=== PATIENT | male | born 1955 | race Caucasian/White ===

== ENCOUNTER 2021-01-31 08:50 | Inpatient (IN) | payer MEDICARE, OTHER ==
[2021-01-31] MEDS ORDERED: MORPHINE SULFATE 4 MG/ML SYRINGE IVP STA ×2 (10:16→13:17)
[2021-01-31] MEDS ORDERED: MAGNESIUM HYDROXIDE 2,400 MG/10 ML CUP PO PRN (10:17)
[2021-01-31] MEDS ORDERED: NALOXONE 0.4 MG/ML 1 ML VIAL IV PRN (10:21)
[2021-01-31] MEDS ORDERED: ACETAMINOPHEN TAB 325 MG TAB PO PRN (10:21)
--- NOTE | 2021-01-31 10:21 | ED ---
Abdominal Pain HPI - General Chief Complaint: Abdominal Pain Stated Complaint: Kidney stones Source: patient Mode of arrival: EMS - History of Present Illness Initial Comments: Patient is a 65-year-old male with past nuchal history of COPD, diabetes, heart failure who presents to the emergency department with reported right-sided abdominal pain. Patient is transferred from [facility]. He states that he took an ambulance into the emergency department for some right-sided abdominal pain. States he has not had a bowel movement in 4 days and normally goes daily. He also reports to burning with urination, frequent urination. Laboratory studies were performed at the outside hospital which were all within normal admits. Covid was negative. Patient did have a urinary tract infection with ni trite-positive urine and 3+ bacteria. He was given a dose of meropenem and blood cultures were obtained. CT was performed patient's abdomen and pelvis which demonstrated a 13 mm and 1 mm renal stone on the left. This is opposite the side of the patient's pain. The patient was given Tylenol and Toradol for pain control with some improvement in his symptoms. The facility in [facility] wanted to transfer the patient here for further evaluation. There are report that the patient has had multiple urinary tract infections in the past were concerned that the renal stone was a nidus for his infection. They're requesting urology consultation. The patient did have 102 fever in their facility. Patient currently afebrile at this time. Still continues to have abdominal pain. No nausea or vomiting. No other alleviating, precipitating or modifying factors. - Related Data Home Medications Medication Instructions Recorded Confirmed Albuterol Inhaler [Ventolin Hfa 2 puff INHALATION RT-QID PRN 01/31/21 01/31/21 Inhaler] Atorvastatin [Lipitor] 80 mg PO HS 01/31/21 01/31/21 Clopidogrel [Plavix] 75 mg PO DAILY 01/31/21 01/31/21 Diltiazem Cd [Cardizem CD] 120 mg PO DAILY 01/31/21 01/31/21 Fluticasone/Salmeterol [Advair 1 puff INHALATION RT-BID 01/31/21 01/31/21 250-50 Diskus] Furosemide [Lasix] 40 mg PO DAILY 01/31/21 01/31/21 Gabapentin [Neurontin] 300 mg PO BID 01/31/21 01/31/21 Loratadine 10 mg PO DAILY 01/31/21 01/31/21 Magnesium Oxide [Mag-Ox] 400 mg PO DAILY 01/31/21 01/31/21 Multivitamins, Thera [Multivitamin 1 tab PO DAILY 01/31/21 01/31/21 (formulary)] Omeprazole [PriLOSEC] 20 mg PO DAILY 01/31/21 01/31/21 Ondansetron [Zofran] 4 mg PO Q4H PRN 01/31/21 01/31/21 Potassium Chloride ER [K-Dur 20] 20 meq PO BID 01/31/21 01/31/21 Sennosides/Docusate Sodium [Senna 1 cap PO BID 01/31/21 01/31/21 Plus 8.6-50 mg Softgel] Tamsulosin HCl [Flomax] 0.4 mg PO DAILY 01/31/21 01/31/21 Terbinafine [LamISIL] 250 mg PO DAILY 01/31/21 01/31/21 glipiZIDE [Glucotrol XL] 2.5 mg PO DAILY 01/31/21 01/31/21 metFORMIN HCL [Glucophage] 1,000 mg PO BID 01/31/21 01/31/21 rOPINIRole HCL [Requip] 0.5 mg PO BID 01/31/21 01/31/21 Allergies Allergy/AdvReac Type Severity Reaction Status Date / Time No Known Allergies Allergy Verified 01/31/21 10:13 Review of Systems ROS Statement: Those systems with pertinent positive or pertinent negative responses have been documented in the HPI. ROS Other: All systems not noted in ROS Statement are negative. Past Medical History Past Medical History: Heart Failure, COPD, Diabetes Mellitus, Hypertension History of Any Multi-Drug Resistant Organisms: None Reported Past Surgical History: No Surgical Hx Reported Past Psychological History: No Psychological Hx Reported Smoking Status: Current every day smoker Past Alcohol Use History: Occasional Past Drug Use History: None Reported Course Vital Signs 01/31/21 01/31/21 01/31/21 08:55 10:49 11:28 Temperature 98.2 F Pulse Rate 85 85 84 Respiratory 18 18 22 Rate Blood Pressure 141/68 132/117 145/90 O2 Sat by Pulse 97 94 L 95 Oximetry Medical Decision Making - Medical Decision Making Upon arrival patient's placed in room 3. I did review the patient's packet. He is given a dose of morphine for pain control. I did call and speak with Dr. Mayorga who agreed to admit the patient. Dr. Wick will be placed on consult. He currently awaiting a bed on the floor Disposition Clinical Impression: UTI (urinary tract infection), Pyrexia, Renal calculus, left Disposition: ADMITTED IP TO THIS [facility] Condition: Stable Is patient prescribed a controlled substance at d/c from ED?: No Decision to Admit Reason: Admit from EC Decision Date: 01/31/21 Decision Time: 10:26
[2021-01-31 12:35] LABS: Glucose,Whole Blood 122 mg/dL (75-99)
[2021-01-31] MEDS: HYDROcodone/APAP 5-325MG 1 EACH TAB PO PRN (14:20)
--- NOTE | 2021-01-31 14:33 | P.GSCN ---
History of Present Illness Consult date: 01/31/21 Reason for Consult: Left-sided renal stone History of present illness: This is 65-year-old male admitted to the hospital as a transfer from the [facility] with febrile UTI. He initially presented to the emergency with fever, dysuria, and bilateral flank pain worse on the right. He underwent a CT abdomen and pelvis which showed evidence of by 13 mm left-sided lower pole stone. He indicated this is his eighth UTI within the past few years. At baseline denies any voiding issues, indicates he has good stream, denies any straining with urination. Denies any pneumaturia. His primary care physician advised to follow up with urology, due to the concern that the stone could be the nidus of his recurrent UTIs. He has not followed up with an urologist due to transportation issues. Review of Systems - Constitutional Reports chills, Reports fever, Reports weakness - EENT Ears, nose, mouth and throat: Denies dysphagia - Cardiovascular Denies chest pain, Denies shortness of breath - Respiratory Denies cough, Denies 7 - Gastrointestinal Reports abdominal pain - Genitourinary Reports dysuria, Reports flank pain - Neurological Denies headaches, Denies syncope Past Medical History Past Medical History: Heart Failure, COPD, Diabetes Mellitus, Hypertension History of Any Multi-Drug Resistant Organisms: None Reported Past Surgical History: No Surgical Hx Reported Past Psychological History: No Psychological Hx Reported Smoking Status: Current every day smoker Past Alcohol Use History: Occasional Past Drug Use History: None Reported Medications and Allergies Home Medications Medication Instructions Recorded Confirmed Type Albuterol Inhaler [Ventolin Hfa 2 puff INHALATION RT-QID PRN 01/31/21 01/31/21 History Inhaler] Atorvastatin [Lipitor] 80 mg PO HS 01/31/21 01/31/21 History Clopidogrel [Plavix] 75 mg PO DAILY 01/31/21 01/31/21 History Diltiazem Cd [Cardizem CD] 120 mg PO DAILY 01/31/21 01/31/21 History Fluticasone/Salmeterol [Advair 1 puff INHALATION RT-BID 01/31/21 01/31/21 History 250-50 Diskus] Furosemide [Lasix] 40 mg PO DAILY 01/31/21 01/31/21 History Gabapentin [Neurontin] 300 mg PO BID 01/31/21 01/31/21 History Loratadine 10 mg PO DAILY 01/31/21 01/31/21 History Magnesium Oxide [Mag-Ox] 400 mg PO DAILY 01/31/21 01/31/21 History Multivitamins, Thera [Multivitamin 1 tab PO DAILY 01/31/21 01/31/21 History (formulary)] Omeprazole [PriLOSEC] 20 mg PO DAILY 01/31/21 01/31/21 History Ondansetron [Zofran] 4 mg PO Q4H PRN 01/31/21 01/31/21 History Potassium Chloride ER [K-Dur 20] 20 meq PO BID 01/31/21 01/31/21 History Sennosides/Docusate Sodium [Senna 1 cap PO BID 01/31/21 01/31/21 History Plus 8.6-50 mg Softgel] Tamsulosin HCl [Flomax] 0.4 mg PO DAILY 01/31/21 01/31/21 History Terbinafine [LamISIL] 250 mg PO DAILY 01/31/21 01/31/21 History glipiZIDE [Glucotrol XL] 2.5 mg PO DAILY 01/31/21 01/31/21 History metFORMIN HCL [Glucophage] 1,000 mg PO BID 01/31/21 01/31/21 History rOPINIRole HCL [Requip] 0.5 mg PO BID 01/31/21 01/31/21 History Allergies Allergy/AdvReac Type Severity Reaction Status Date / Time No Known Allergies Allergy Verified 01/31/21 10:13 Surgical - Exam Vital Signs Temp Pulse Resp BP Pulse Ox 98.2 F 85 18 141/68 97 01/31/21 08:55 01/31/21 08:55 01/31/21 08:55 01/31/21 08:55 01/31/21 08:55 - General well developed, well nourished, moderate distress, moderate pain - Eyes PERRL, normal ocular movement - ENT normal nares, normal mucosa - Respiratory normal expansion, normal respiratory effort - Abdomen Abdomen: soft, tender (Right quadrant and flank ) - Psychiatric oriented to time, oriented to person, oriented to place Results - Labs Abnormal Lab Results - Last 24 Hours (Table) 01/31/21 Range/Units 12:33 POC Glucose (mg/dL) 122 H (75-99) mg/dL - Imaging CT scan - abdomen: image reviewed (1.3 cm stone within the lower pole of the left kidney, no right-sided renal stone, no hydronephrosis appreciated on either side. Bladder was not distended on imaging,) Assessment and Plan Assessment: 65-year-old male with history of recurrent UTI. Admitted to the hospital with febrile UTI, he indicated this is a Q-tip within the past few years. Has no voiding issues at baseline, his PVR is 0. No signs of colovesical fistula. His primary care physician advised him to follow up with urology as the concern that the stone could be the nidus of his recurrent UTIs. Discussed with him given his normal voiding pattern, lack of symptoms of fistula the stone is a possibility as the nidus of his infection. Discussed given the size and the location of stone and the concern that it's an infected stone, ureteroscopy and ESWL is not preferred approach. The preferred approach is to perform a percutaneous nephrolithotomy (PCNL). Discussed with him the risk of the procedure which includes but not limited to bleeding, infection, injury to nearby organs including the spleen, lung and bowel. I discussed with him even w ith stone removal there is potential that he will have persistent urinary tract infection. Discussed cannot perform the surgery, until his infection is completely cleared and he finished his antibiotics -At this time I recommend 14 days of antibiotics, infectious disease is on board. -Cardiology consult, he is on Plavix, unsure the reason, but indicated he does have history of coronary artery disease, and has stent in the past. Discussed he will need to discontinue Plavix for surgery. Given his transportation issues, we'll obtain a cardiology consult as an inpatient for cardiac clearance for his surgery -We'll arrange for an outpatient left percutaneous nephrolithotomy in 4-6 Weeks
--- NOTE | 2021-01-31 15:40 | XR ---
EXAMINATION TYPE: XR KUB DATE OF EXAM: 01/31/2021 COMPARISON: NONE HISTORY: Hematuria TECHNIQUE: 2 views supine FINDINGS: There is no sign of intestinal obstruction or pneumoperitoneum. Fecal pattern is normal. Th ere is no sign of a mass. There are no pathologic calcifications over the kidneys. There is right hip prosthesis. IMPRESSION: Nonacute abdomen.
[2021-01-31] MEDS: TAMSULOSIN 0.4 MG CAP.ER.24H PO SCH (15:58)
[2021-01-31] MEDS: FUROSEMIDE 40 MG TAB PO SCH (15:58)
[2021-01-31] MEDS: SENNOSIDES-DOCUSATE SODIUM 1 EACH TAB PO SCH (15:58)
[2021-01-31] MEDS: LORATADINE 10 MG TAB PO SCH (15:59)
[2021-01-31] MEDS: MAGNESIUM OXIDE 400 MG TAB PO SCH (15:59)
[2021-01-31] MEDS: TERBINAFINE 250 MG TAB PO SCH (15:59)
[2021-01-31] MEDS: GABAPENTIN 300 MG CAP PO SCH ×2 (15:59→21:27)
[2021-01-31] MEDS: PANTOPRAZOLE 40 MG TABLET PO SCH (15:59)
[2021-01-31] MEDS: POTASSIUM CHLORIDE ER 20 MEQ TAB.ER PO SCH (15:59)
[2021-01-31] MEDS: DILTIAZEM CD 120 MG CAP.ER.24H PO SCH (16:29)
[2021-01-31 17:25] LABS: Glucose,Whole Blood 111 mg/dL (75-99)
--- NOTE | 2021-01-31 18:56 | P.HPIM ---
History of Present Illness H&P Date: 01/31/21 Chief Complaint: Abdominal Pain 65-year-old male with past nuchal history of COPD, diabetes, heart failure who presents to the emergency department with reported right-sided abdominal pain. Patient is transferred from [facility]. He states that he took an ambulance into the emergency department for some right-sided abdominal pain. States he has not had a bowel movement in 4 days and normally goes daily. He also reports to burning with urination, frequent urination. Laboratory studies were performed at the outside hospital which were all within normal admits. Covid was negative. Patient did have a urinary tract infection with nitrite- positive urine and 3+ bacteria. He was given a dose of meropenem and blood cultures were obtained. CT was performed patient's abdomen and pelvis which demonstrated a 13 mm and 1 mm renal stone on the left. This is opposite the side of the patient's pain. The patient was given Tylenol and Toradol for pain control with some improvement in his symptoms. The facility in [facility] wanted to transfer the patient here for further evaluation. There are report that the patient has had multiple urinary tract infections in the past were concerned that the renal stone was a nidus for his infection. They're requesting urology consultation. The patient did have 102 fever in their facility. Patient currently afebrile at this time. Still continues to have abdominal pain. Review of Systems REVIEW OF SYSTEMS: CONSTITUTIONAL: No fever, no malaise, no fatigue. HEENT: No recent visual problems or hearing problems. Denied any sore throat. CARDIOVASCULAR: No chest pain, orthopnea, PND, no palpitations, no syncope. PULMONARY: No shortness of breath, no cough, no hemoptysis. GASTROINTESTINAL: abdominal pain. NEUROLOGICAL: No headaches, no weakness, no numbness. HEMATOLOGICAL: Denies any bleeding or petechiae. GENITOURINARY: Denies any burning micturition, frequency, or urgency. MUSCULOSKELETAL/RHEUMATOLOGICAL: Denies any joint pain, swelling, or any muscle pain. ENDOCRINE: Denies any polyuria or polydipsia. The rest of the 14-point review of systems is negative. Past Medical History Past Medical History: Heart Failure, COPD, Diabetes Mellitus, Hypertension History of Any Multi-Drug Resistant Organisms: None Reported Past Surgical History: No Surgical Hx Reported Past Psychological History: No Psychological Hx Reported Smoking Status: Current every day smoker Past Alcohol Use History: Occasional Past Drug Use History: None Reported Medications and Allergies Home Medications Medication Instructions Recorded Confirmed Type Albuterol Inhaler [Ventolin Hfa 2 puff INHALATION RT-QID PRN 01/31/21 01/31/21 History Inhaler] Atorvastatin [Lipitor] 80 mg PO HS 01/31/21 01/31/21 History Clopidogrel [Plavix] 75 mg PO DAILY 01/31/21 01/31/21 History Diltiazem Cd [Cardizem CD] 120 mg PO DAILY 01/31/21 01/31/21 History Fluticasone/Salmeterol [Advair 1 puff INHALATION RT-BID 01/31/21 01/31/21 History 250-50 Diskus] Furosemide [Lasix] 40 mg PO DAILY 01/31/21 01/31/21 History Gabapentin [Neurontin] 300 mg PO BID 01/31/21 01/31/21 History Loratadine 10 mg PO DAILY 01/31/21 01/31/21 History Magnesium Oxide [Mag-Ox] 400 mg PO DAILY 01/31/21 01/31/21 History Multivitamins, Thera [Multivitamin 1 tab PO DAILY 01/31/21 01/31/21 History (formulary)] Omeprazole [PriLOSEC] 20 mg PO DAILY 01/31/21 01/31/21 History Ondansetron [Zofran] 4 mg PO Q4H PRN 01/31/21 01/31/21 History Potassium Chloride ER [K-Dur 20] 20 meq PO BID 01/31/21 01/31/21 History Sennosides/Docusate Sodium [Senna 1 cap PO BID 01/31/21 01/31/21 History Plus 8.6-50 mg Softgel] Tamsulosin HCl [Flomax] 0.4 mg PO DAILY 01/31/21 01/31/21 History Terbinafine [LamISIL] 250 mg PO DAILY 01/31/21 01/31/21 History glipiZIDE [Glucotrol XL] 2.5 mg PO DAILY 01/31/21 01/31/21 History metFORMIN HCL [Glucophage] 1,000 mg PO BID 01/31/21 01/31/21 History rOPINIRole HCL [Requip] 0.5 mg PO BID 01/31/21 01/31/21 History Allergies Allergy/AdvReac Type Severity Reaction Status Date / Time No Known Allergies Allergy Verified 01/31/21 10:13 Physical Exam Vitals: Vital Signs Temp Pulse Pulse Resp BP BP Pulse Ox 01/31/21 11:45 98.2 F 85 18 137/75 96 01/31/21 11:28 84 22 145/90 95 01/31/21 10:49 85 18 132/117 94 L 01/31/21 08:55 98.2 F 85 18 141/68 97 Intake and Output 01/30/21 01/31/21 01/31/21 22:59 06:59 14:59 Other: Weight 115.666 kg - Constitutional General appearance: Present: average body habitus, cooperative, no acute distress - EENT Eyes: Present: anicteric sclerae, EOMI, PERRLA, normal appearance ENT: Present: hearing grossly normal, normal oropharynx Ears: bilateral: normal - Neck Neck: Present: normal ROM. Absent: lymphadenopathy, rigidity, thyromegaly Carotids: negative: bruit present Thyroid: bilateral: normal size, negative: enlarged, nodule - Respiratory Respiratory: bilateral: CTA, negative: rales, rhonchi, wheezing - Cardiovascular Rhythm: regular Heart sounds: normal: S1, S2 Abnormal Heart Sounds: Absent: systolic murmur, diastolic murmur - Gastrointestinal General gastrointestinal: Present: normal bowel sounds, soft. Absent: distended, organomegaly, tenderness - Genitourinary Genitourinary Comment(s): deferred - Integumentary Integumentary: Present: normal turgor. Absent: jaundiced, rash, ulcer - Neurologic Neurologic: Present: CNII-XII intact. Absent: focal deficits - Musculoskeletal Musculoskeletal: Present: gait normal, strength equal bilaterally - Psychiatric Psychiatric: Present: A&O x's 3, appropriate affect, intact judgment & insight Results Labs: Abnormal Lab Results - Last 24 Hours (Table) 01/31/21 Range/Units 12:33 POC Glucose (mg/dL) 122 H (75-99) mg/dL Thrombosis Risk Factor Assmnt - Choose All That Apply Any of the Below Risk Factors Present?: Yes Each Factor Represents 1 point: Abnormal pulmonary function (COPD), Obesity (BMI >25) Other Risk Factors: Yes Each Risk Factor Represents 2 Points: Age 61-74 years Thrombosis Risk Factor Assessment Total Risk Factor Score: 4 Thrombosis Risk Factor Assessment Level: Moderate Risk Assessment and Plan Assessment: 1. Recurrent UTI - Patient has been placed on Merrem 1 g IV every 12 hours; urine culture and blood cultures are obtained; further recommendations pending culture results 2. Intractable abdominal pain/Left-sided nephrolithiasis - Patient has been placed on IV fluids in form of normal saline at a rate of 75 mL an hour; we will start patient on Flomax 0.4 milligrams daily - Urology consulted for further recommendations and treatment 3. Hyperlipidemia 4. COPD; not in exacerbation; continue with albuterol nebulizer treatments along with Symbicort 2 puffs twice a day 5. Diabetes mellitus type 2/ neuropathy; continue home dose of metformin 1000 mg by mouth twice a day; we will hold glipizide while inpatient; patient takes Neurontin 300 mg by mouth twice a day for neuropathy; we will plan to resume 6. Hypertension; Cardizem CD 120 mg daily 7. History of CAD/CHF; currently taking Plavix 75 mg daily, Lipitor and Lasix 40 mg daily DVT prophylaxis; SCDs CODE STATUS; full code
[2021-01-31] MEDS: SYMBICORT 80-4.5 MCG INHALER INHALATION SCH (20:06)
[2021-01-31 20:39] LABS: Glucose,Whole Blood 196 mg/dL (75-99)
[2021-01-31] MEDS ORDERED: MEROPENEM 1 GM in SODIUM CHLORIDE 0.9% 100 ML IVPB SCH (21:00)
[2021-01-31] MEDS: ATORVASTATIN 80 MG TAB PO SCH (21:23)
[2021-01-31] MEDS: metFORMIN 500 MG TAB PO SCH (21:23)
--- NOTE | 2021-02-01 00:07 | P.CONS ---
History of Present Illness - Reason for Consult Consult date: 01/31/21 recurrent UTI Requesting physician: Riki Mayorga - Chief Complaint Righr sided abd pain and urinary burning x days - History of Present Illness History of present illness : Patient is 65-year-old male with multiple comorbidities presented initially to the [facility] with right-sided abdominal pain and abdominal for the last 4 days in this patient concern for possible appendicitis patient also noticed to have any burning and frequent urination but no suprapubic pain did have some nausea but no vomiting patient was evaluated by the hospital the patient did have a positive UA did have a CT abdominal pelvis with evidence of 13 mm renal stone on the right side patient was given a dose of meropenem and subsequently has been transferred to [facility] be evaluated by urology on presentation the hospital the patient was afebrile patient did not have any blood work done at this facility patient did have a evaluation by urology KUB x-ray nonacute abdominal who is recommending percutaneous nephrolithotomy and antibiotic therapy infectious was consulted for further management of antibiotics is patient currently being treated with meropenem 1 g every 12 hours however no clear history and the patient has been infected with the resistant pathogen such as ESBL Review of system: CONSTITUTIONAL: Positive for weakness along with the fever. EYES: No complaint. ENT: No complaint. RESPIRATORY: No complaint. CARDIOVASCULAR: No complaint. GENITOURINARY: As per history of present illness. GASTROINTESTINAL: As per history of present illness. MUSCULOSKELETAL: No complaint. INTEGUMENTARY: No complaint. PSYCHOLOGIC: No complaint. ENDOCRINE: No complaint. NEUROLOGIC: No complaint. Past medical history : Reviewed, documented below Past surgical history : Reviewed, documented below Social history: Reviewed, documented below Medications: Reviewed, as documented below EXAMINATION: Vital sigans= Reviewed and documented below GENERAL DESCRIPTION: Elderly male male lying in bed, no distress. No tachypnea or accessory muscle of respiration use. HEENT: Shows Pallor , no scleral icterus. Oral mucous membrane is dry. NECK: Trachea central, no thyromegaly. LUNGS: Unlabored breathing. Clear to auscultation anteriorly. No wheeze or crackle. HEART: S1, S2, regular rate and rhythm. ABDOMEN: Soft, no tenderness , guarding or rigidity EXTREMITIES: No edema of feet. SKIN: No rash, no masses palpable. NEUROLOGICAL: The patient is awake, alert, oriented x3, mood and affect normal. LABS AND RADIOLOGY: Reviewed results see below Assessment : Patient presented to hospital with right-sided abdominal pain some nausea burning and frequency of urine secondary complicating intact function with evidence of nephrolithiasis and concern for possible nidus of infection in this patient who does give history of recurrent UTI but no history of any ESBL pathogen Plan: 1-obtain blood cultures as well as urine culture 2-we will try to obtain cultures from [facility] the patient initially presented 3-discontinue meropenem and start the patient on Rocephin 2 g daily We will follow on clinical condition and cultures to further adjust medication if needed Thank you for this consultation we will follow the patient along with you Past Medical History Past Medical History: Heart Failure, COPD, Diabetes Mellitus, Hypertension History of Any Multi-Drug Resistant Organisms: None Reported Past Surgical History: No Surgical Hx Reported Past Psychological History: No Psychological Hx Reported Smoking Status: Current every day smoker Past Alcohol Use History: Occasional Past Drug Use History: None Reported Medications and Allergies Home Medications Medication Instructions Recorded Confirmed Type Albuterol Inhaler [Ventolin Hfa 2 puff INHALATION RT-QID PRN 01/31/21 01/31/21 History Inhaler] Atorvastatin [Lipitor] 80 mg PO HS 01/31/21 01/31/21 History Clopidogrel [Plavix] 75 mg PO DAILY 01/31/21 01/31/21 History Diltiazem Cd [Cardizem CD] 120 mg PO DAILY 01/31/21 01/31/21 History Fluticasone/Salmeterol [Advair 1 puff INHALATION RT-BID 01/31/21 01/31/21 History 250-50 Diskus] Furosemide [Lasix] 40 mg PO DAILY 01/31/21 01/31/21 History Gabapentin [Neurontin] 300 mg PO BID 01/31/21 01/31/21 History Loratadine 10 mg PO DAILY 01/31/21 01/31/21 History Magnesium Oxide [Mag-Ox] 400 mg PO DAILY 01/31/21 01/31/21 History Multivitamins, Thera [Multivitamin 1 tab PO DAILY 01/31/21 01/31/21 History (formulary)] Omeprazole [PriLOSEC] 20 mg PO DAILY 01/31/21 01/31/21 History Ondansetron [Zofran] 4 mg PO Q4H PRN 01/31/21 01/31/21 History Potassium Chloride ER [K-Dur 20] 20 meq PO BID 01/31/21 01/31/21 History Sennosides/Docusate Sodium [Senna 1 cap PO BID 01/31/21 01/31/21 History Plus 8.6-50 mg Softgel] Tamsulosin HCl [Flomax] 0.4 mg PO DAILY 01/31/21 01/31/21 History Terbinafine [LamISIL] 250 mg PO DAILY 01/31/21 01/31/21 History glipiZIDE [Glucotrol XL] 2.5 mg PO DAILY 01/31/21 01/31/21 History metFORMIN HCL [Glucophage] 1,000 mg PO BID 01/31/21 01/31/21 History rOPINIRole HCL [Requip] 0.5 mg PO BID 01/31/21 01/31/21 History Allergies Allergy/AdvReac Type Severity Reaction Status Date / Time No Known Allergies Allergy Verified 01/31/21 10:13 Physical Exam Vitals: Vital Signs Temp Pulse Pulse Resp BP BP Pulse Ox 01/31/21 14:26 98.2 F 82 18 120/71 94 L 01/31/21 11:45 98.2 F 85 18 137/75 96 01/31/21 11:28 84 22 145/90 95 01/31/21 10:49 85 18 132/117 94 L 01/31/21 08:55 98.2 F 85 18 141/68 97 Intake and Output 01/31/21 01/31/21 01/31/21 06:59 14:59 22:59 Intake Total 180 Balance 180 Intake: Oral 180 Other: Weight 115.666 kg Results Labs: Abnormal Lab Results - Last 24 Hours (Table) 01/31/21 Range/Units 12:33 POC Glucose (mg/dL) 122 H (75-99) mg/dL
[2021-02-01 06:25] LABS: Appearance,Urine Clear (Clear); Bilirubin,Urine Negative (Negative); Blood,Urine Negative (Negative); Color,Urine Yellow; Glucose,Urine (UA) Negative (Negative); Ketones,Urine Negative (Negative); Leukocyte Esterase,Urine Small (Negative); Nitrite,Urine Negative (Negative); Protein,Urine Trace (Negative); RBC,Urine 2 /hpf (0-5); Specific Gravity,Urine 1.017 (1.001-1.035); Squamous Epithelial Cell,Urine 1 /hpf (0-4); WBC,Urine 22 /hpf (0-5)
[2021-02-01 07:21] LABS: Glucose,Whole Blood 113 mg/dL (75-99)
[2021-02-01] MEDS: SENNOSIDES-DOCUSATE SODIUM 1 EACH TAB PO SCH ×2 (08:09→20:29)
[2021-02-01] MEDS: TAMSULOSIN 0.4 MG CAP.ER.24H PO SCH (08:09)
[2021-02-01] MEDS: GABAPENTIN 300 MG CAP PO SCH ×2 (08:09→20:30)
[2021-02-01] MEDS: MAGNESIUM OXIDE 400 MG TAB PO SCH (08:09)
[2021-02-01] MEDS: FUROSEMIDE 40 MG TAB PO SCH (08:09)
[2021-02-01] MEDS: PANTOPRAZOLE 40 MG TABLET PO SCH (08:09)
[2021-02-01] MEDS: TERBINAFINE 250 MG TAB PO SCH (08:09)
[2021-02-01] MEDS: LORATADINE 10 MG TAB PO SCH (08:09)
[2021-02-01] MEDS: DILTIAZEM CD 120 MG CAP.ER.24H PO SCH (08:09)
[2021-02-01] MEDS: POTASSIUM CHLORIDE ER 20 MEQ TAB.ER PO SCH ×2 (08:10→20:29)
[2021-02-01] MEDS: metFORMIN 500 MG TAB PO SCH ×2 (08:10→20:29)
[2021-02-01] MEDS: HYDROcodone/APAP 5-325MG 1 EACH TAB PO PRN ×3 (08:15→19:17)
[2021-02-01] MEDS: SYMBICORT 80-4.5 MCG INHALER INHALATION SCH ×2 (08:59→21:02)
[2021-02-01 09:21] LABS: Basophils # (A) 0.03 X 10*3/uL (0.00-0.10); Basophils % (A) 0.5 %; Eosinophils # (A) 0.11 X 10*3/uL (0.04-0.35); Eosinophils % (A) 1.9 %; HCT 33.5 % (39.6-50.0); HGB 10.6 g/dL (13.0-17.0); Lymphocytes # (A) 1.25 X 10*3/uL (0.90-5.00); Lymphocytes % (A) 21.6 %; MCH 29.9 pg (27.0-32.0); MCHC 31.6 g/dL (32.0-37.0); MCV 94.6 fL (80.0-97.0); Mean Platelet Volume 11.4 fL (9.5-12.2); Monocytes # (A) 0.54 X 10*3/uL (0.20-1.00); Monocytes % (A) 9.3 %; Neutrophils # (A) 3.84 X 10*3/uL (1.80-7.70); Neutrophils % (A) 66.4 %; Platelet Count 161 X 10*3/uL (140-440); RBC 3.54 X 10*6/uL (4.40-5.60); RDW 14.9 % (11.5-14.5); WBC 5.79 X 10*3/uL (4.50-10.00)
[2021-02-01 09:42] LABS: African American GFR (CKD) 110.2 (60.0-200.0); Anion Gap 5.6 mmol/L (4.00-12.00); C Reactive Protein 10.5 mg/dL (0.0-0.8); Carbon Dioxide 27.4 mmol/L (21.6-31.8); Non-African American GFR(CKD) 95.1 (60.0-200.0); Potassium 3.6 mmol/L (3.5-5.5)
--- NOTE | 2021-02-01 10:23 | P.CRDCN ---
History of Present Illness History of present illness: HISTORY OF PRESENTING ILLNESS This is a pleasant 65-year-old male past medical history significant for UTIs, hypertension, type 2 diabetes, COPD, coronary artery disease status post PCI (patient states 1 stent placed 2-3 years ago), also states he has congestive heart failure (He is not aware of his LV function), chronic nicotine dependence. He follows in the office with Dr. Bhatti in [place], states he followed up with Elzbieta Munroe NP about a month ago. He states he was suppose to have a stress test around Day, however, this was rescheduled and he is unsure when his appointment for his stress test is. We have been asked to see in consultation for cardiac clearance. Patient presents to [facility] in [place] with right sided abdominal pain, fever, chills, dysuria, bilateral flank pain for the past 5 days. Patient underwent a CT abdomen and pelvis which showed evidence of by 13 mm left-sided lower pole stone Patient was given a dose of meropenem and subsequently has been transferred to [facility] be evaluated by urology. Urology evaluated the patient and currently are recommending 14 days of antibiotics, infectious disease consult and will arrange for an outpatient left percutaneous nephrolithotomy in 46 weeks. Patient states he is not on aspirin due to abdominal discomfort. DIAGNOSTICS EKG at [place], sinus rhythm HR 92, no significant STT wave abnormalities. KUB revealed no sign of intestinal obstruction. Nonacute abdomen. Laboratory reviewed at [place], sodium 136, potassium 3.4, BUN 9, serum creatinine 0.9, lipase 40, WBC 10.5, hemoglobin 11.6, platelets 178 Current home cardiac medications include atorvastatin 80 mg nightly, Plavix 75 mg daily, Lasix 40 mg daily, Cardizem 120 mg daily, potassium 20 mEq twice a day REVIEW OF SYSTEMS At the time of my exam: CONSTITUTIONAL: Denies fever or chills. CARDIOVASCULAR: Denies chest pain, shortness of breath, orthopnea, PND or palpitations. RESPIRATORY: Denies cough. GASTROINTESTINAL: +abdominal pain, +flank pain, diarrhea, constipation, nausea or vomiting. MUSCULOSKELETAL: Denies myalgias. NEUROLOGIC: Denies numbness, tingling, headacbe or weakness. ENDOCRINE: Denies fatigue, weight change, polydipsia or polyurina. GENITOURINARY: Denies burning, hematuria or urgency with micturation. HEMATOLOGIC: Denies history of anemia or bleeding. PHYSICAL EXAMINATION Blood pressure 125/69 heart rate 98 afebrile and maintaining oxygen saturation 94% on room air CONSTITUTIONAL: No apparent distress. HEENT: Head is normocephalic. Pupils are equal, round. Sclerae anicteric. Mucous membranes of the mouth are moist. No JVD. No carotid bruit. CHEST EXAMINATION: Lungs are wheezing bilaterally to auscultation. No chest wall tenderness is noted on palpation or with deep breathing. HEART EXAMINATION: Regular rate and rhythm. S1, S2 heard. No murmurs, gallops or rub. ABDOMEN: Soft, nontender. Positive bowel sounds. EXTREMITIES: 2+ peripheral pulses, no lower extremity edema and no calf tenderness. NEUROLOGIC EXAMINATION: Patient is awake, alert and oriented x3. ASSESSMENT Abdominal Pain Fever, Dysuria UTI Hypertension Type 2 diabetes COPD Coronary artery disease status post PCI (patient states 1 stent placed 2-3 years ago)- not on aspirin due to abdominal discomfort History of congestive heart failure (Patient is not aware of his LV function) Chronic nicotine dependence PLAN We will obtain echocardiogram Recommend patient follow up with his primary television director, Dr. Bhatti in [place], for cardiac clearance for outpatient surgery Patient most likely can stop Plavix if stent was placed 2-3 years ago, however, we recommend continue until follow up with his primary television director for discontinuation. Recommend continuing patient's home cardiac medication Rest per primary and surgery. Nurse Practitioner note has been reviewed, I agree with a documented findings a nd plan of care. Patient was seen and examined. Past Medical History Past Medical History: Heart Failure, COPD, Diabetes Mellitus, Hypertension History of Any Multi-Drug Resistant Organisms: None Reported Past Surgical History: No Surgical Hx Reported Past Psychological History: No Psychological Hx Reported Smoking Status: Current every day smoker Past Alcohol Use History: Occasional Past Drug Use History: None Reported Medications and Allergies Home Medications Medication Instructions Recorded Confirmed Type Albuterol Inhaler [Ventolin Hfa 2 puff INHALATION RT-QID PRN 01/31/21 01/31/21 History Inhaler] Atorvastatin [Lipitor] 80 mg PO HS 01/31/21 01/31/21 History Clopidogrel [Plavix] 75 mg PO DAILY 01/31/21 01/31/21 History Diltiazem Cd [Cardizem CD] 120 mg PO DAILY 01/31/21 01/31/21 History Fluticasone/Salmeterol [Advair 1 puff INHALATION RT-BID 01/31/21 01/31/21 History 250-50 Diskus] Furosemide [Lasix] 40 mg PO DAILY 01/31/21 01/31/21 History Gabapentin [Neurontin] 300 mg PO BID 01/31/21 01/31/21 History Loratadine 10 mg PO DAILY 01/31/21 01/31/21 History Magnesium Oxide [Mag-Ox] 400 mg PO DAILY 01/31/21 01/31/21 History Multivitamins, Thera [Multivitamin 1 tab PO DAILY 01/31/21 01/31/21 History (formulary)] Omeprazole [PriLOSEC] 20 mg PO DAILY 01/31/21 01/31/21 History Ondansetron [Zofran] 4 mg PO Q4H PRN 01/31/21 01/31/21 History Potassium Chloride ER [K-Dur 20] 20 meq PO BID 01/31/21 01/31/21 History Sennosides/Docusate Sodium [Senna 1 cap PO BID 01/31/21 01/31/21 History Plus 8.6-50 mg Softgel] Tamsulosin HCl [Flomax] 0.4 mg PO DAILY 01/31/21 01/31/21 History Terbinafine [LamISIL] 250 mg PO DAILY 01/31/21 01/31/21 History glipiZIDE [Glucotrol XL] 2.5 mg PO DAILY 01/31/21 01/31/21 History metFORMIN HCL [Glucophage] 1,000 mg PO BID 01/31/21 01/31/21 History rOPINIRole HCL [Requip] 0.5 mg PO BID 01/31/21 01/31/21 History Allergies Allergy/AdvReac Type Severity Reaction Status Date / Time No Known Allergies Allergy Verified 01/31/21 10:13 Physical Exam Vitals: Vital Signs Temp Pulse Pulse Resp BP BP Pulse Ox 02/01/21 07:00 98.7 F 98 16 125/69 89 L 02/01/21 02:00 98.4 F 104 H 18 119/70 94 L 01/31/21 19:30 98.5 F 91 20 104/66 94 L 01/31/21 14:26 98.2 F 82 18 120/71 94 L 01/31/21 14:00 82 18 01/31/21 11:45 98.2 F 85 18 137/75 96 01/31/21 11:28 84 22 145/90 95 01/31/21 10:49 85 18 132/117 94 L 01/31/21 08:55 98.2 F 85 18 141/68 97 Intake and Output 01/31/21 02/01/21 02/01/21 22:59 06:59 14:59 Intake Total 200 100 Output Total 400 Balance -200 100 Intake: Intake, IV Titration 100 Amount Meropenem 1 gm In Sodium 100 Chloride 0.9% 100 ml @ 33 .3 mls/hr IVPB Q12HR [facility] Rx#:[id number] Oral 200 Output: Urine 400 Other: # Voids 2 Results 02/01/21 05:45 02/01/21 05:45 Current Medications Generic Name Dose Route Start Last Admin Trade Name Freq PRN Reason Stop Dose Admin Acetaminophen 650 mg 01/31/21 10:21 01/31/21 14:09 Acetaminophen Tab 325 Mg Tab PO 650 mg Q6HR PRN Administration Mild Pain or Fever > 100.5 Hydrocodone Bitart/Acetaminophen 1 each 01/31/21 13:18 01/31/21 14:20 Hydrocodone/Apap 5-325mg 1 Each Tab PO 1 each Q4HR PRN Administration Pain Albuterol Sulfate 2.5 mg 01/31/21 12:57 Albuterol Nebulized 2.5 Mg/3 Ml INHALATION RT-QID PRN Shortness Of Breath Atorvastatin Calcium 80 mg 01/31/21 21:00 01/31/21 21:23 Atorvastatin 80 Mg Tab PO 80 mg HS JORGE Administration Budesonide/Formoterol Fumarate 2 puff 01/31/21 20:00 01/31/21 20:06 Symbicort 80-4.5 Mcg Inhaler INHALATION 2 puff RT-BID J[facility]GE Administration Diltiazem HCl 120 mg 01/31/21 15:00 01/31/21 16:29 Diltiazem Cd 120 Mg Cap.Er.24h PO 120 mg DAILY [facility] Administration Furosemide 40 mg 01/31/21 15:00 01/31/21 15:58 Furosemide 40 Mg Tab PO 40 mg DAILY [facility] Administration Gabapentin 300 mg 01/31/21 14:45 01/31/21 21:27 Gabapentin 300 Mg Cap PO 300 mg BID JORGE Administration Ceftriaxone Sodium 2 gm/ 50 mls @ 100 mls/hr 02/01/21 09:00 Sodium Chloride IVPB Q24H [facility] Loratadine 10 mg 01/31/21 15:00 01/31/21 15:59 Loratadine 10 Mg Tab PO 10 mg DAILY JORGE Administration Magnesium Hydroxide 2,400 mg 01/31/21 10:17 Magnesium Hydroxide 2,400 Mg/10 Ml Cup PO 02/14/21 10:18 ONCE PRN Constipation Magnesium Oxide 400 mg 01/31/21 15:00 01/31/21 15:59 Magnesium Oxide 400 Mg Tab PO 400 mg DAILY [facility] Administration Metformin HCl 1,000 mg 01/31/21 21:00 01/31/21 21:23 Metformin 500 Mg Tab PO 1,000 mg BID [facility] Administration Naloxone HCl 0.2 mg 01/31/21 10:21 Naloxone 0.4 Mg/Ml 1 Ml Vial IV Q2M PRN Opioid Reversal Pantoprazole Sodium 40 mg 01/31/21 15:00 01/31/21 15:59 Pantoprazole 40 Mg Tablet PO 40 mg [id number] JORGE Administration Potassium Chloride 20 meq 01/31/21 21:00 01/31/21 15:59 Potassium Chloride Er 20 Meq Tab.Er PO 20 meq BID JORGE Administration Ropinirole HCl 0.5 mg 01/31/21 14:45 01/31/21 21:23 Ropinirole Hcl 1 Mg Tab PO 0.5 mg BID JORGE Administration Senna/Docusate Sodium 1 each 01/31/21 21:00 01/31/21 15:58 Sennosides-Docusate Sodium 1 Each Tab PO 1 each BID [facility] Administration Tamsulosin HCl 0.4 mg 01/31/21 15:00 01/31/21 15:58 Tamsulosin 0.4 Mg Cap.Er.24h PO 0.4 mg DAILY [facility]ORGE Administration Terbinafine HCl 250 mg 01/31/21 15:00 01/31/21 15:59 Terbinafine 250 Mg Tab PO 250 mg DAILY JORGE Administration Intake and Output 01/31/21 02/01/21 02/01/21 22:59 06:59 14:59 Intake Total 200 100 Output Total 400 Balance -200 100 Intake: Intake, IV Titration 100 Amount Meropenem 1 gm In Sodium 100 Chloride 0.9% 100 ml @ 33 .3 mls/hr IVPB Q12HR [facility] Rx#:[id number] Oral 200 Output: Urine 400 Other: # Voids 2
[2021-02-01 12:10] LABS: Glucose,Whole Blood 224 mg/dL (75-99)
--- NOTE | 2021-02-01 14:53 | XR ---
EXAMINATION TYPE: XR chest 2V DATE OF EXAM: 02/01/2021 COMPARISON: Outside 01/30/2021 exam HISTORY: 65-year-old male pneumonia, cough TECHNIQUE: Frontal and lateral views FINDINGS: Heart mildly enlarged. Patchy lower lung opacities, right greater than left have increased in the int erval. No sizable effusion. Mild hyperinflation. IMPRESSION: Right greater than left patchy basilar densities have increased in the interval. Pneumonia not exclud ed. Suspect underlying emphysema.
[2021-02-01 17:25] LABS: Glucose,Whole Blood 149 mg/dL (75-99)
--- NOTE | 2021-02-01 19:06 | P.PN ---
Subjective Progress Note Date: 02/01/21 65-year-old male with past nuchal history of COPD, diabetes, heart failure who presents to the emergency department with reported right-sided abdominal pain. Patient is transferred from [facility]. He states that he took an ambulance into the emergency department for some right-sided abdominal pain. States he has not had a bowel movement in 4 days and normally goes daily. He also reports to burning with urination, frequent urination. Laboratory studies were performed at the outside hospital which were all within normal admits. Covid was negative. Patient did have a urinary tract infection with nitrite- positive urine and 3+ bacteria. He was given a dose of meropenem and blood cultures were obtained. CT was performed patient's abdomen and pelvis which demonstrated a 13 mm and 1 mm renal stone on the left. This is opposite the side of the patient's pain. The patient was given Tylenol and Toradol for pain control with some improvement in his symptoms. The facility in [facility] wanted to transfer the patient here for further evaluation. There are report that the patient has had multiple urinary tract infections in the past were concerned that the renal stone was a nidus for his infection. They're requesting urology consultation. The patient did have 102 fever in their facility. Patient currently afebrile at this time. Still continues to have abdominal pain. 02/01/2021 Patient is evaluated today at the bedside. He stills complains of quite a bit of right sided flank and abdominal pain. Patient is urinating without difficulty. He was evaluated by urology who recommended patient complete a two- week course of antibiotics. I would plan for a percutaneous nephrolithotomy in 4-6 weeks outpatient. Patient is pending cardiology evaluation for clearance for surgery. Patient does have a history of heart failure, COPD, hypertension, diabetes. Patient states that 10 minutes prior to my examination he was walking himself to the bathroom and experienced some dizziness and lightheadedness. He states that he did feel some fluttering at this time as well and his left chest wall. Patient does not have a history of atrial fibrillation. Request the patient be placed on telemetry and orthostatics completed. Orthostatics are not available for review. Patient's vital signs have remained stable afebrile 98.7, heart rate 98, blood pressure 125/69 patient is 94% on room air. Patient is continued on IV Rocephin as well as Zithromax. KUB reveals a nonacute abdomen. Patient denies any nausea or vomiting, diarrhea, chest pain, cough, shortness of breath. Echocardiogram is currently pending. Pt will most likely be discharged tomorrow to f/u with his open soaper tender for surgical clearance. ROS Constitutional: Denied any fatigue denied any fever. Cardio vascular: denied any chest pain, palpitations Gastrointestinal denied any nausea vomiting : reports RUQ abdominal pain, radiates across the abd sharp in nature, constant. denies any hematuria, dysuria Pulmonary: Denied any shortness of breath cough Neurologic denied any new focal deficits All inpatient medications were reviewed and appropriate changes in these medications as dictated in the interval history and assessment and plan. PHYSICAL EXAMINATION: GENERAL: The patient is alert and oriented x3, not in any acute distress. Well developed, well nourished. HEENT: Pupils are round and equally reacting to light. EOMI. No scleral icterus. No conjunctival pallor. Normocephalic, atraumatic. No pharyngeal erythema. No thyromegaly. CARDIOVASCULAR: S1 and S2 present. No murmurs, rubs, or gallops. PULMONARY: Chest is clear to auscultation, no wheezing or crackles. ABDOMEN: Soft, tender, nondistended, normoactive bowel sounds. No palpable organomegaly. Right CVA tenderness MUSCULOSKELETAL: No joint swelling or deformity. EXTREMITIES: No cyanosis, clubbing, or pedal edema. NEUROLOGICAL: Gross neurological examination did not reveal any focal deficits. SKIN: No rashes. Assessment and plan Assessment: 1. Recurrent UTI - Patient has been placed on Merrem 1 g IV every 12 hours; urine culture and blood cultures are obtained; further recommendations pending culture results 2. Intractable abdominal pain/Left-sided nephrolithiasis - Patient has been placed on IV fluids in form of normal saline at a rate of 75 mL an hour; we will start patient on Flomax 0.4 milligrams daily - Urology Recommend 2 weeks of antibiotic therapy and plan for percutaneious nephrolithotomy in 4 to 6 weeks. 3. Hyperlipidemia 4. COPD; not in exacerbation; continue with albuterol nebulizer treatments along with Symbicort 2 puffs twice a day 5. Diabetes mellitus type 2/ neuropathy; continue home dose of metformin 1000 mg by mouth twice a day; we will hold glipizide while inpatient; patient takes Neurontin 300 mg by mouth twice a day for neuropathy; we will plan to resume 6. Hypertension; Cardizem CD 120 mg daily 7. History of CAD/CHF; currently taking Plavix 75 mg daily, Lipitor and Lasix 40 mg daily DVT prophylaxis; SCDs CODE STATUS; full code Echocardiogram is currently pending, plan is to f/u with pts open soaper tender for a complete workup and surgical clearance prior to surgery. Pt has been placed on telemetry. Orthostatic BP are negative, monitor for any further episodes of dizziness/lightheadeness with ambulation. Cont to monitor labs and vitals. Cont all other medications. Objective - Vital Signs Vital signs: Vital Signs Temp 98.7 F 02/01/21 07:00 Pulse 98 02/01/21 07:00 Resp 16 02/01/21 07:00 BP 125/69 02/01/21 07:00 Pulse Ox 89 L 02/01/21 07:00 Intake & Output 01/31/21 02/01/21 02/01/21 18:59 06:59 18:59 Intake Total 980 100 240 Output Total 400 Balance 580 100 240 Weight 115.666 kg Intake: Intake, IV Titration 100 Amount Meropenem 1 gm In Sodium 100 Chloride 0.9% 100 ml @ 33 .3 mls/hr IVPB Q12HR [facility] Rx#:[id number] Oral 980 240 Output: Urine 400 Other: Voiding Method Toilet Urinal # Voids 2 2 - Labs CBC & Chem 7: 02/01/21 05:45 02/01/21 05:45 Labs: Abnormal Lab Results - Last 24 Hours (Table) 01/31/21 01/31/21 01/31/21 Range/Units 12:33 17:24 20:38 RBC (4.40-5.60) X 10*6/uL Hgb (13.0-17.0) g/dL Hct (39.6-50.0) % MCHC (32.0-37.0) g/dL RDW (11.5-14.5) % BUN (9.0-27.0) mg/dL BUN/Creatinine Ratio (12.00-20.00) Ratio POC Glucose (mg/dL) 122 H 111 H 196 H (75-99) mg/dL Calcium (8.7-10.3) mg/dL C-Reactive Protein (0.0-0.8) mg/dL Urine Protein (Negative) Ur Leukocyte Esterase (Negative) Urine WBC (0-5) /hpf 02/01/21 02/01/21 02/01/21 Range/Units 05:30 05:45 05:45 RBC 3.54 L (4.40-5.60) X 10*6/uL Hgb 10.6 L (13.0-17.0) g/dL Hct 33.5 L (39.6-50.0) % MCHC 31.6 L (32.0-37.0) g/dL RDW 14.9 H (11.5-14.5) % BUN 8.0 L (9.0-27.0) mg/dL BUN/Creatinine Ratio 10.00 L (12.00-20.00) Ratio POC Glucose (mg/dL) (75-99) mg/dL Calcium 8.0 L (8.7-10.3) mg/dL C-Reactive Protein 10.5 H (0.0-0.8) mg/dL Urine Protein Trace H (Negative) Ur Leukocyte Esterase Small H (Negative) Urine WBC 22 H (0-5) /hpf 02/01/21 Range/Units 07:20 RBC (4.40-5.60) X 10*6/uL Hgb (13.0-17.0) g/dL Hct (39.6-50.0) % MCHC (32.0-37.0) g/dL RDW (11.5-14.5) % BUN (9.0-27.0) mg/dL BUN/Creatinine Ratio (12.00-20.00) Ratio POC Glucose (mg/dL) 113 H (75-99) mg/dL Calcium (8.7-10.3) mg/dL C-Reactive Protein (0.0-0.8) mg/dL Urine Protein (Negative) Ur Leukocyte Esterase (Negative) Urine WBC (0-5) /hpf
[2021-02-01 20:19] LABS: Glucose,Whole Blood 137 mg/dL (75-99)
[2021-02-01] MEDS: ATORVASTATIN 80 MG TAB PO SCH (20:29)
[2021-02-02 01:14] LABS: Basophils % (A) 0 %; Eosinophils # (A) 0.2 k/uL (0-0.7); Eosinophils % (A) 3 %; HCT 36.8 % (39.0-53.0); HGB 11.6 gm/dL (13.0-17.5); Hypochromasia Slight; Lymphocytes # (A) 1.1 k/uL (1.0-4.8); Lymphocytes % (A) 20 %; MCH 30.8 pg (25.0-35.0); MCHC 31.6 g/dL (31.0-37.0); MCV 97.3 fL (80.0-100.0); Mean Platelet Volume 8.2; Monocytes # (A) 0.4 k/uL (0-1.0); Monocytes % (A) 8 %; Neutrophils # (A) 3.8 k/uL (1.3-7.7); Neutrophils % (A) 67 %; Platelet Count 214 k/uL (150-450); RBC 3.78 m/uL (4.30-5.90); RDW 14.4 % (11.5-15.5); WBC 5.8 k/uL (3.8-10.6)
[2021-02-02] MEDS: ONDANSETRON 4 MG/2 ML VIAL IVP PRN (01:26)
[2021-02-02] MEDS: PANTOPRAZOLE 40 MG/10 ML VIAL IVP SCH ×3 (01:27→21:19)
--- NOTE | 2021-02-02 06:16 | PN ---
PROGRESS NOTE DATE OF SERVICE: 02/01/2021 REASON FOR FOLLOWUP: Complicated urinary tract infection. INTERVAL HISTORY: The patient is afebrile. The patient is breathing comfortably. The patient denies having any chest pain. No shortness of breath or cough. No abdominal pain. No diarrhea. PHYSICAL EXAMINATION: Blood pressure is 145/81 with a pulse of 85, temperature 97.8. He is 92% on room air. General description is a middle-aged male lying in bed in no distress. Respiratory system: Unlabored breathing, clear to auscultation anteriorly. Heart S1, S2. Regular rate and rhythm. Abdomen soft, no tenderness. LABS: Hemoglobin is 10.2, white count 5.7. BUN of 8, creatinine . DIAGNOSTIC IMPRESSION AND PLAN: Patient admitted to the hospital with complicated urinary tract infection in this patient who is currently covered with Rocephin which will be continued for now while waiting for the culture to finalize and monitor clinical course closely. MMODL / IJN: [id number] /
[2021-02-02 07:20] LABS: Glucose,Whole Blood 125 mg/dL (75-99)
[2021-02-02] MEDS: SYMBICORT 80-4.5 MCG INHALER INHALATION SCH ×2 (08:14→20:19)
--- NOTE | 2021-02-02 09:20 | ECHOF ---
Referral Reason:LV function MEASUREMENTS -------- HEIGHT: 175.3 cm WEIGHT: 115.7 kg BP: 125/69 RVIDd: 3.3 cm (< 3.3) IVSd: 1.2 cm (0.6 - 1.1) LVIDd: 4.2 cm (3.9 - 5.3) LVPWd: 1.2 cm (0.6 - 1.1) IVSs: 1.8 cm LVIDs: 3.2 cm LVPWs: 1.7 cm LA Diam: 4.0 cm (2.7 - 3.8) Ao Diam: 3.6 cm (2.0 - 3.7) AV Cusp: 2.3 cm (1.5 - 2.6) MV EXCURSION: 16.399 mm (> 18.000) MV EF SLOPE: 46 mm/s (70 - 150) EPSS: 0.5 cm MV E Filippo: 0.60 m/s MV DecT: 289 ms MV A Filippo: 0.73 m/s MV E/A Ratio: 0.82 RAP: 5.00 mmHg RVSP: 33.21 mmHg FINDINGS -------- Sinus rhythm. This was a technically difficult study with suboptimal views. The left ventricular size is normal. There is borderline concentric left ventricular hypertrophy. Overall left ventricular systolic function is normal with, an EF between 55 - 60 %. The right ventricle is mildly enlarged. The left atrium is normal in size. The right atrial size is normal. 5 ml of Lumason was utilized for enhancement of images. The aortic valve was not well visualized. The mitral valve was not well visualized. Mild tricuspid regurgitation present. Right ventricular systolic pressure is normal at < 35 mmHg. The pulmonic valve was not well visualized. The aortic root size is normal. IVC Not well visulized. There is no pericardial effusion. CONCLUSIONS -------- 1. This was a technically difficult study with suboptimal views. 2. There is borderline concentric left ventricular hypertrophy. 3. Overall left ventricular systolic function is normal with, an EF between 55 - 60 %. 4. The right ventricle is mildly enlarged. 5. The left atrium is normal in size. 6. 5 ml of Lumason was utilized for enhancement of images. 7. Mild tricuspid regurgitation present. 8. There is no pericardial effusion. PUBLIC RELATIONS COORDINATOR: Rere Chery RDCS
[2021-02-02] MEDS: DILTIAZEM CD 120 MG CAP.ER.24H PO SCH (09:24)
[2021-02-02] MEDS: POTASSIUM CHLORIDE ER 20 MEQ TAB.ER PO SCH ×2 (09:25→21:20)
[2021-02-02] MEDS: GABAPENTIN 300 MG CAP PO SCH ×2 (09:25→21:20)
[2021-02-02] MEDS: FUROSEMIDE 40 MG TAB PO SCH (09:25)
[2021-02-02] MEDS: LORATADINE 10 MG TAB PO SCH (09:26)
[2021-02-02] MEDS: MAGNESIUM OXIDE 400 MG TAB PO SCH (09:26)
[2021-02-02] MEDS: TERBINAFINE 250 MG TAB PO SCH (09:26)
[2021-02-02] MEDS: metFORMIN 500 MG TAB PO SCH (09:26)
[2021-02-02] MEDS: TAMSULOSIN 0.4 MG CAP.ER.24H PO SCH (09:39)
[2021-02-02] MEDS: SENNOSIDES-DOCUSATE SODIUM 1 EACH TAB PO SCH ×2 (09:39→21:20)
--- NOTE | 2021-02-02 09:58 | P.PN ---
Subjective This is a pleasant 65-year-old male past medical history significant for UTIs, hypertension, type 2 diabetes, COPD, coronary artery disease status post PCI (patient states 1 stent placed 2-3 years ago), also states he has congestive heart failure (He is not aware of his LV function), chronic nicotine dependence. He follows in the office with Dr. Bhatti in [place], states he followed up with Elzbieta Munroe NP about a month ago. He states he was suppose to have a stress test around Day, however, this was rescheduled and he is unsure when his appointment for his stress test is. We have been asked to see in consultation for cardiac clearance. Patient presents to [facility] in [place] with right sided abdominal pain, fever, chills, dysuria, bilateral flank pain for the past 5 days. Patient underwent a CT abdomen and pelvis which showed evidence of by 13 mm left-sided lower pole stone Patient was given a dose of meropenem and subsequently has been transferred to be evaluated by urology. Urology evaluated the patient and currently are recommending 14 days of antibiotics, infectious disease consult and will arrange for an outpatient left percutaneous nephrolithotomy in 46 weeks. 02/02/21 Patient seen and examined at bedside, no acute distress. Blood pressure 120/71, heart rate 82, afebrile, maintaining oxygen saturations on room air. Echocardiogram revealed, EF 5560 percent, RV is mildly enlarged, mild tricuspid regurgitation. He's currently maintained on atorvastatin 80 mg nightly, Cardizem 120 mg daily, Lasix 40 mg daily. Laboratory data review WBC 5.8, hemoglobin 11.6, platelets 214, troponin negative 1. PHYSICAL EXAMINATION CONSTITUTIONAL: No apparent distress. HEENT: Neck Supple. No JVD. No carotid bruit. CHEST EXAMINATION: Lungs are wheezing bilaterally to auscultation. No chest wall tenderness is noted on palpation or with deep breathing. HEART EXAMINATION: Regular rate and rhythm. S1, S2 heard. No murmurs, gallops or rub. ABDOMEN: Soft, nontender. Positive bowel sounds. EXTREMITIES: 2+ peripheral pulses, no lower extremity edema and no calf tenderness. NEUROLOGIC EXAMINATION: Patient is awake, alert and oriented x3. ASSESSMENT Abdominal Pain Fever, Dysuria UTI Hypertension Type 2 diabetes COPD Coronary artery disease status post PCI (patient states 1 stent placed 2-3 years ago)- not on aspirin due to abdominal discomfort History of congestive heart failure (Patient is not aware of his LV function) Chronic nicotine dependence PLAN Echocardiogram obtained and reviewed EF 55-60%, no significant wall motion abnormalities Recommend patient follow up with his primary riveting machine operator, Dr. Bhatti in [place], for cardiac clearance for outpatient surgery Patient most likely can stop Plavix if stent was placed 2-3 years ago, however, we recommend continue until follow up with his primary riveting machine operator for discontinuation. Recommend continuing patient's home cardiac medication Rest per primary and surgery. We will follow the patient on an as needed basis. Please reach out with questions or concerns. Nurse Practitioner note has been reviewed, I agree with a documented findings and plan of care. Patient was seen and examined. Objective - Vital Signs Vital signs: Vital Signs Temp 98.7 F 02/01/21 07:00 Pulse 98 02/01/21 07:00 Resp 16 02/01/21 07:00 BP 125/69 02/01/21 07:00 Pulse Ox 89 L 02/01/21 07:00 Intake & Output 01/31/21 02/01/21 02/01/21 18:59 06:59 18:59 Intake Total 980 100 240 Output Total 400 650 Balance 580 100 -410 Weight 115.666 kg Intake: Intake, IV Titration 100 Amount Meropenem 1 gm In Sodium 100 Chloride 0.9% 100 ml @ 33 .3 mls/hr IVPB Q12HR [facility] Rx#:[id number] Oral 980 240 Output: Urine 400 650 Other: Voiding Method Toilet Urinal # Voids 2 2 - Labs CBC & Chem 7: 02/02/21 01:01 02/01/21 05:45 Labs: Abnormal Lab Results - Last 24 Hours (Table) 01/31/21 01/31/21 02/01/21 Range/Units 17:24 20:38 05:30 RBC (4.40-5.60) X 10*6/uL Hgb (13.0-17.0) g/dL Hct (39.6-50.0) % MCHC (32.0-37.0) g/dL RDW (11.5-14.5) % BUN (9.0-27.0) mg/dL BUN/Creatinine Ratio (12.00-20.00) Ratio POC Glucose (mg/dL) 111 H 196 H (75-99) mg/dL Calcium (8.7-10.3) mg/dL C-Reactive Protein (0.0-0.8) mg/dL Urine Protein Trace H (Negative) Ur Leukocyte Esterase Small H (Negative) Urine WBC 22 H (0-5) /hpf 02/01/21 02/01/21 02/01/21 Range/Units 05:45 05:45 07:20 RBC 3.54 L (4.40-5.60) X 10*6/uL Hgb 10.6 L (13.0-17.0) g/dL Hct 33.5 L (39.6-50.0) % MCHC 31.6 L (32.0-37.0) g/dL RDW 14.9 H (11.5-14.5) % BUN 8.0 L (9.0-27.0) mg/dL BUN/Creatinine Ratio 10.00 L (12.00-20.00) Ratio POC Glucose (mg/dL) 113 H (75-99) mg/dL Calcium 8.0 L (8.7-10.3) mg/dL C-Reactive Protein 10.5 H (0.0-0.8) mg/dL Urine Protein (Negative) Ur Leukocyte Esterase (Negative) Urine WBC (0-5) /hpf 02/01/21 Range/Units 12:09 RBC (4.40-5.60) X 10*6/uL Hgb (13.0-17.0) g/dL Hct (39.6-50.0) % MCHC (32.0-37.0) g/dL RDW (11.5-14.5) % BUN (9.0-27.0) mg/dL BUN/Creatinine Ratio (12.00-20.00) Ratio POC Glucose (mg/dL) 224 H (75-99) mg/dL Calcium (8.7-10.3) mg/dL C-Reactive Protein (0.0-0.8) mg/dL Urine Protein (Negative) Ur Leukocyte Esterase (Negative) Urine WBC (0-5) /hpf Microbiology - Last 24 Hours (Table) 02/01/21 05:30 Urine Culture - Preliminary Urine,Voided
[2021-02-02 11:09] LABS: African American GFR (CKD) >90 (>60 ml/min/1.73 sqM); Anion Gap 6 mmol/L; Blood Urea Nitrogen 8 mg/dL (9-20); Calcium 8.6 mg/dL (8.4-10.2); Carbon Dioxide 25 mmol/L (22-30); Chloride 103 mmol/L (98-107); Glucose 108 mg/dL (74-99); Non-African American GFR(CKD) >90 (>60 ml/min/1.73 sqM); Potassium 4.1 mmol/L (3.5-5.1); Sodium 134 mmol/L (137-145)
[2021-02-02 12:07] LABS: Glucose,Whole Blood 107 mg/dL (75-99)
--- NOTE | 2021-02-02 12:37 | P.PN ---
Subjective Progress Note Date: 02/02/21 65-year-old male with past nuchal history of COPD, diabetes, heart failure who presents to the emergency department with reported right-sided abdominal pain. Patient is transferred from [facility]. He states that he took an ambulance into the emergency department for some right-sided abdominal pain. States he has not had a bowel movement in 4 days and normally goes daily. He also reports to burning with urination, frequent urination. Laboratory studies were performed at the outside hospital which were all within normal admits. Covid was negative. Patient did have a urinary tract infection with nitrite- positive urine and 3+ bacteria. He was given a dose of meropenem and blood cultures were obtained. CT was performed patient's abdomen and pelvis which demonstrated a 13 mm and 1 mm renal stone on the left. This is opposite the side of the patient's pain. The patient was given Tylenol and Toradol for pain control with some improvement in his symptoms. The facility in [facility] wanted to transfer the patient here for further evaluation. There are report that the patient has had multiple urinary tract infections in the past were concerned that the renal stone was a nidus for his infection. They're requesting urology consultation. The patient did have 102 fever in their facility. Patient currently afebrile at this time. Still continues to have abdominal pain. 02/01/2021 Patient is evaluated today at the bedside. He stills complains of quite a bit of right sided flank and abdominal pain. Patient is urinating without difficulty. He was evaluated by urology who recommended patient complete a two- week course of antibiotics. I would plan for a percutaneous nephrolithotomy in 4-6 weeks outpatient. Patient is pending cardiology evaluation for clearance for surgery. Patient does have a history of heart failure, COPD, hypertension, diabetes. Patient states that 10 minutes prior to my examination he was walking himself to the bathroom and experienced some dizziness and lightheadedness. He states that he did feel some fluttering at this time as well and his left chest wall. Patient does not have a history of atrial fibrillation. Request the patient be placed on telemetry and orthostatics completed. Orthostatics are not available for review. Patient's vital signs have remained stable afebrile 98.7, heart rate 98, blood pressure 125/69 patient is 94% on room air. Patient is continued on IV Rocephin as well as Zithromax. KUB reveals a nonacute abdomen. Patient denies any nausea or vomiting, diarrhea, chest pain, cough, shortness of breath. Echocardiogram is currently pending. Pt will most likely be discharged tomorrow to f/u with his preventive medicine officer for surgical clearance. 02/01/2021 Patient is evaluated today sitting up at the bedside. He is still complaining of right-sided flank and abdominal pain that radiates across his abdomen rated a 5 out of 10. Patient states that he has not had a bowel movement in 1 week. There is as needed magnesium order that has not been administered. Patient still complaining of some shortness of breath at rest. Chest x-ray is reviewed, patient will continue on antibiotics and incentive spirometery. Patient stated that throughout the evening he had an episode of vomiting with some dark red blood as well as a sharp 4 out of 10 sensation to the left of his epigastrium that did not radiate. EKG was completed it was found to be normal sinus rhythm, troponins negative. Echocardiogram is 55-60%. Primary blood cultures remain negative, pending finalized results. Patient is continued on antibiotics, pain management. [place] and Toradol has been added. PT OT consultation. Patient states that he does not have transportation back to [place] upon discharge. He will need a social work consultation. Patient is afebrile, heart rate 82 sinus rhythm, blood pressure 122/71, 34% on room air. Patient is requiring nasal cannula periodically please wean O2 as tolerated. Patient today states that he is having some burning and discomfort with urination, he denies any blood in the urine. ROS Constitutional: Denied any fatigue denied any fever. Cardio vascular: Denies palpitations. Reports one episode of sharp left-sided chest pain nonradiating throughout the night. Gastrointestinal denied any nausea vomiting, reports constipation. : reports RUQ abdominal pain, radiates across the abd sharp in nature, constant. Today patient is complaining of some burning and discomfort with urination. Pulmonary: Denies cough, reports shortness of breath with exertion and at rest Neurologic denied any new focal deficits All inpatient medications were reviewed and appropriate changes in these medications as dictated in the interval history and assessment and plan. PHYSICAL EXAMINATION: GENERAL: The patient is alert and oriented x3, not in any acute distress. Well developed, well nourished. HEENT: Pupils are round and equally reacting to light. EOMI. No scleral icterus. No conjunctival pallor. Normocephalic, atraumatic. No pharyngeal erythema. No thyromegaly. CARDIOVASCULAR: S1 and S2 present. No murmurs, rubs, or gallops. PULMONARY: Chest is clear to auscultation, no wheezing or crackles. ABDOMEN: Soft, tender, nondistended, normoactive bowel sounds. No palpable organomegaly. Right CVA tenderness MUSCULOSKELETAL: No joint swelling or deformity. EXTREMITIES: No cyanosis, clubbing, +1 pedal edema, pitting NEUROLOGICAL: Gross neurological examination did not reveal any focal deficits. SKIN: No rashes. Assessment and plan Assessment: 1. Recurrent UTI - Patient has been placed on IV Rocephin per ID, final cultures are pending 2. Intractable abdominal pain/Left-sided nephrolithiasis - Patient has been placed on IV fluids in form of normal saline at a rate of 75 mL an hour; we will start patient on Flomax 0.4 milligrams daily - Urology Recommend 2 weeks of antibiotic therapy and plan for percutaneious nephrolithotomy in 4 to 6 weeks. 3. Hyperlipidemia 4. COPD; not in exacerbation; continue with albuterol nebulizer treatments along with Symbicort 2 puffs twice a day, please wean O2 as tolerated. 5. Diabetes mellitus type 2/ neuropathy, metformin and Amaryl are placed on hold. Patient is started on NovoLog sliding scale for coverage. 6. Hypertension; Cardizem CD 120 mg daily, blood pressures are improving 7. History of CAD/CHF; currently taking Plavix 75 mg daily, Lipitor and Lasix 40 mg daily 8. Chronic congestive heart failure, appears diastolic, current EF 55-60% not in acute exacerbation. Patient is maintained on oral Lasix 9. GERD Patient is experiencing intermittent episodes of sharp epigastric pain. An acute coronary syndrome ruled out troponin negative, cardiology workup has Been completed. Patient is on IV Protonix. DVT prophylaxis; SCDs CODE STATUS; full code Plan is for patient to continue on IV antibiotics until blood cultures are finalized, antibiotics on discharge as recommended by ID. Patient will need social work consultation in order to find transportation back to his home in [place]. Patient will then need to follow-up with his primary cardiology. Patient will continue using incentive spirometry, PT OT consultation. Medications have been adjusted, toradol has been added for pain management. Patient has as needed milk of magnesia for constipation. Continue to monitor for any more episodes of vomiting, and signs of bleeding. Please complete post void residuals to r/o urinary retention. Objective - Vital Signs Vital signs: Vital Signs Temp 98.2 F 02/02/21 07:00 Pulse 82 02/02/21 07:00 Resp 18 02/02/21 08:00 BP 122/71 02/02/21 07:00 Pulse Ox 97 02/02/21 07:00 Intake & Output 02/01/21 02/02/21 02/02/21 18:59 06:59 18:59 Intake Total 420 300 Output Total 950 980 Balance -530 300 -980 Intake: Oral 420 300 Output: Urine 950 980 Other: Voiding Method Toilet Toilet Urinal Urinal # Voids 2 - Labs CBC & Chem 7: 02/02/21 01:01 02/02/21 10:12 Labs: Abnormal Lab Results - Last 24 Hours (Table) 02/01/21 02/01/21 02/02/21 Range/Units 17:23 20:17 01:01 RBC 3.78 L (4.30-5.90) m/uL Hgb 11.6 L (13.0-17.5) gm/dL Hct 36.8 L (39.0-53.0) % Sodium (137-145) mmol/L BUN (9-20) mg/dL Glucose (74-99) mg/dL POC Glucose (mg/dL) 149 H 137 H (75-99) mg/dL 02/02/21 02/02/21 02/02/21 Range/Units 07:19 10:12 12:05 RBC (4.30-5.90) m/uL Hgb (13.0-17.5) gm/dL Hct (39.0-53.0) % Sodium 134 L (137-145) mmol/L BUN 8 L (9-20) mg/dL Glucose 108 H (74-99) mg/dL POC Glucose (mg/dL) 125 H 107 H (75-99) mg/dL Microbiology - Last 24 Hours (Table) 02/01/21 05:30 Urine Culture - Final Urine,Voided 02/01/21 05:45 Blood Culture - Preliminary Blood No Growth after 24 hours
[2021-02-02] MEDS: INSULIN ASPART (NovoLOG) 100 UNIT/ML VIAL SQ SCH ×3 (12:39→21:20)
[2021-02-02] MEDS: KETOROLAC 15 MG/ML 1 ML VIAL IVP SCH ×2 (12:58→17:33)
[2021-02-02 17:38] LABS: Glucose,Whole Blood 147 mg/dL (75-99)
--- NOTE | 2021-02-02 18:37 | PN ---
PROGRESS NOTE DATE OF SERVICE: 02/02/2021 REASON FOR FOLLOWUP: Complicated urinary tract infection. INTERVAL HISTORY: The patient is afebrile. The patient mentioned not feeling that good. Did have vomiting. Still having abdominal pain on the right side. No chest pain, shortness of breath or cough. PHYSICAL EXAMINATION: Blood pressure 124/71 with a pulse of 103, temperature 98.1. He is 96% on room air. GENERAL DESCRIPTION: General description is a middle-aged male lying in bed in no distress. RESPIRATORY SYSTEM: Unlabored breathing. Clear to auscultation anteriorly. HEART: S1, S2. Regular rate and rhythm. ABDOMEN: Soft. No tenderness. LABS: Hemoglobin is 11.6, white count 5.8. BUN of 8, creatinine 0.71. Cultures so far negative. DIAGNOSTIC IMPRESSION AND PLAN: Patient admitted to hospital with right-sided complicated urinary tract infection, currently on Rocephin. Urine and blood cultures have been negative so far. Continue with supportive care. MMODL / IJN: [id number] /
[2021-02-02 21:11] LABS: Glucose,Whole Blood 99 mg/dL (75-99)
[2021-02-02] MEDS: ATORVASTATIN 80 MG TAB PO SCH (21:20)
[2021-02-03] MEDS: KETOROLAC 15 MG/ML 1 ML VIAL IVP SCH ×5 (01:20→23:30)
[2021-02-03 07:36] LABS: Glucose,Whole Blood 103 mg/dL (75-99)
[2021-02-03] MEDS: SYMBICORT 80-4.5 MCG INHALER INHALATION SCH ×2 (08:22→19:41)
[2021-02-03] MEDS: INSULIN ASPART (NovoLOG) 100 UNIT/ML VIAL SQ SCH ×4 (08:33→20:18)
[2021-02-03] MEDS: SENNOSIDES-DOCUSATE SODIUM 1 EACH TAB PO SCH ×2 (08:34→19:48)
[2021-02-03] MEDS: LORATADINE 10 MG TAB PO SCH (08:34)
[2021-02-03] MEDS: FUROSEMIDE 40 MG TAB PO SCH (08:34)
[2021-02-03] MEDS: MAGNESIUM OXIDE 400 MG TAB PO SCH (08:34)
[2021-02-03] MEDS: TERBINAFINE 250 MG TAB PO SCH (08:34)
[2021-02-03] MEDS: GABAPENTIN 300 MG CAP PO SCH ×2 (08:34→19:49)
[2021-02-03] MEDS: PANTOPRAZOLE 40 MG/10 ML VIAL IVP SCH ×2 (08:35→19:48)
[2021-02-03] MEDS: DILTIAZEM CD 120 MG CAP.ER.24H PO SCH (08:35)
[2021-02-03] MEDS: POTASSIUM CHLORIDE ER 20 MEQ TAB.ER PO SCH ×2 (08:36→19:49)
[2021-02-03] MEDS: TAMSULOSIN 0.4 MG CAP.ER.24H PO SCH (09:18)
[2021-02-03 09:36] LABS: Basophils # (A) 0.04 X 10*3/uL (0.00-0.10); Basophils % (A) 0.8 %; Eosinophils # (A) 0.28 X 10*3/uL (0.04-0.35); Eosinophils % (A) 5.5 %; HCT 36.4 % (39.6-50.0); HGB 11.2 g/dL (13.0-17.0); Lymphocytes # (A) 1.89 X 10*3/uL (0.90-5.00); MCH 29.7 pg (27.0-32.0); MCHC 30.8 g/dL (32.0-37.0); MCV 96.6 fL (80.0-97.0); Mean Platelet Volume 11.9 fL (9.5-12.2); Monocytes # (A) 0.54 X 10*3/uL (0.20-1.00); Monocytes % (A) 10.6 %; Neutrophils # (A) 2.34 X 10*3/uL (1.80-7.70); Neutrophils % (A) 45.7 %; Platelet Count 179 X 10*3/uL (140-440); RBC 3.77 X 10*6/uL (4.40-5.60); RDW 14.6 % (11.5-14.5); WBC 5.11 X 10*3/uL (4.50-10.00)
[2021-02-03 10:53] LABS: African American GFR (CKD) 82.4 (60.0-200.0); Anion Gap 5.6 mmol/L (4.00-12.00); BUN/Creat Ratio 11.82 Ratio (12.00-20.00); Calcium 8.7 mg/dL (8.7-10.3); Carbon Dioxide 30.4 mmol/L (21.6-31.8); Non-African American GFR(CKD) 71.1 (60.0-200.0); Potassium 4.8 mmol/L (3.5-5.5)
[2021-02-03] MEDS: ALBUTEROL NEBULIZED 2.5 MG/3 ML INHALATION PRN (11:45)
[2021-02-03 11:53] LABS: Glucose,Whole Blood 153 mg/dL (75-99)
--- NOTE | 2021-02-03 13:09 | P.DS ---
Providers Date of admission: 02/02/21 09:15 Attending physician: Riki Mayorga MD Consults: 01/31/21 10:22 Consult Physician Urgent Consulting Provider: Boris Tang Consult Reason/Comments: recurrent uti, left renal stone Do you want consulting provider notified?: Yes Consult Physician Urgent Consulting Provider: Samantha Artis Consult Reason/Comments: recurrent uti Do you want consulting provider notified?: Yes 01/31/21 13:14 Consult Physician Routine Consulting Provider: Ilan Spann Consult Reason/Comments: clearance for percutaneous nephrolithocotomy Do you want consulting provider notified?: Yes Primary care physician: GAYATHRI Correa Hospital Course: Final Diagnosis . Recurrent UTI - cultures are negative oral antibiotics on discharge 2. Intractable abdominal pain/Left-sided nephrolithiasis - we will start patient on Flomax 0.4 milligrams daily - Urology Recommend 2 weeks of antibiotic therapy and plan for percutaneious nephrolithotomy in 4 to 6 weeks. 3. Hyperlipidemia 4. COPD; not in exacerbation; continue with albuterol nebulizer treatments along with Symbicort 2 puffs twice a day, please wean O2 as tolerated. 5. Diabetes mellitus type 2/ neuropathy, metformin and Amaryl. 6. Hypertension; Cardizem CD 120 mg daily 7. History of CAD/CHF; currently taking Plavix 75 mg daily, Lipitor and Lasix 40 mg daily 8. Chronic congestive heart failure, appears diastolic, current EF 55-60% not in acute exacerbation. Patient is maintained on oral Lasix 9. GERD Discharge Disposition Patient is discharged home to complete a course of antibiotic therapy for 2 weeks. Patient needs to f/u with Dr Tang to schedule percutaneous nephrolithotomy in 4 to 6 weeks. Apparently patient will be pending permanent placement within the next 2 weeks to improve his home situation. Patient does have a home social service agency director, he will arrange for assistance with transportation to appointments. Repeat labs in 3 days faxed to PCP. Prescription provided. Hospital course This is a pleasant 65 old male who presents with a history of COPD, diabetes, heart failure with an ejection fraction of 55-60%. Patient reported with right- sided abdominal pain as well as right-sided flank pain is sharp in nature and radiating across his abdomen. Patient states that he is also had a bowel movement 6 days. Patient also reported burning with urination, frequent urination. Labs performed also the hospital and initial assessment and were all within normal limits. CLOtest was negative. Patient was positive for UTI with nitrate positive urine posterior plus bacteria. He was given a dose of meropenem and start an IV Rocephin. Final cultures are currently pending and infectious disease will place patient on oral antibiotics on discharge. CT of the abdomen pelvis was performed which demonstrated a 13 mm and 1 mm renal stone on the left, this is opposite side of the patient's pain. Patient was given Tylenol and Toradol for pain and symptoms were improved. Patient was evaluated by cardiology for clearance for a percutaneous nephrolithotomy in 4-6 weeks. Cardiology performed an echocardiogram, EF 55-60%, continue all current medications. Patient is on Plavix for a remote history of cardiac stenting, he states his most recent stent was 3-4 years ago. Because cardiology does not outpatient while they felt that he needs to follow-up with Dr. Lorenzo in [facility] in order for final surgical clearance. Troponin was negative this admission, EKG within normal limits. Patient did experience an episode of vomiting this hospital stay, he states it was bloody, however there is no further signs of bleeding. Patient's hemoglobin has remained stable, today is 11.2. Will recheck in 3 days post discharge. White blood cell is within normal limits at 5.11, all electrodes are within normal limits. Patient did experience some hyperglycemia, on inhaled steroids. He can resume home hypoglycemic agents, A1c 6. Patient has remained afebrile, heart rate sinus rhythm 60s, blood pressure 131/73. 02/03/2021 Patient is stable medically for discharge today. He denies any nausea or vomiting. He states that after having a dose of milk of magnesia and yesterday he did have a small bowel movement. Patient can continue with [id number] medications on discharge. Patient will continue with antibiotics as prescribed by infectious disease on discharge. Patient will follow-up with Dr. Danielle for a percutaneous nephrolithotomy in 4-6 weeks after finishing antibiotic therapy. Patient denies any chest pain, palpitations, cough, shortness of breath. He was evaluated by physical therapy who states the patient is stable for discharge home. Patient is a half pack per day smoker, nicotine patches are sent on discharge. Please see medication reconciliation for list of current medications. Thank you for allowing us to care of this patient. Patient Condition at Discharge: Stable Plan - Discharge Summary Discharge Rx Participant: No New Discharge Prescriptions: New HYDROcodone/APAP 5-325MG [[place] 5-325] 1 each PO Q4HR PRN #8 tab PRN Reason: Pain Acetaminophen Tab [Tylenol] 650 mg PO Q6HR PRN tab PRN Reason: Mild Pain Or Fever > 100.5 Continue rOPINIRole HCL [Requip] 0.5 mg PO BID Ondansetron [Zofran] 4 mg PO Q4H PRN PRN Reason: Nausea Magnesium Oxide [Mag-Ox] 400 mg PO DAILY Loratadine 10 mg PO DAILY Gabapentin [Neurontin] 300 mg PO BID Furosemide [Lasix] 40 mg PO DAILY Diltiazem Cd [Cardizem CD] 120 mg PO DAILY Clopidogrel [Plavix] 75 mg PO DAILY Albuterol Inhaler [Ventolin Hfa Inhaler] 2 puff INHALATION RT-QID PRN PRN Reason: Shortness Of Breath Terbinafine [LamISIL] 250 mg PO DAILY Tamsulosin HCl [Flomax] 0.4 mg PO DAILY Potassium Chloride ER [K-Dur 20] 20 meq PO BID metFORMIN HCL [Glucophage] 1,000 mg PO BID Omeprazole [PriLOSEC] 20 mg PO DAILY Sennosides/Docusate Sodium [Senna Plus 8.6-50 mg Softgel] 1 cap PO BID Multivitamins, Thera [Multivitamin (formulary)] 1 tab PO DAILY glipiZIDE [Glucotrol XL] 2.5 mg PO DAILY Fluticasone/Salmeterol [Advair 250-50 Diskus] 1 puff INHALATION RT-BID Atorvastatin [Lipitor] 80 mg PO HS Discharge Medication List Albuterol Inhaler [Ventolin Hfa Inhaler] 2 puff INHALATION RT-QID PRN 01/31/21 [History] Atorvastatin [Lipitor] 80 mg PO HS 01/31/21 [History] Clopidogrel [Plavix] 75 mg PO DAILY 01/31/21 [History] Diltiazem Cd [Cardizem CD] 120 mg PO DAILY 01/31/21 [History] Fluticasone/Salmeterol [Advair 250-50 Diskus] 1 puff INHALATION RT-BID 01/31/21 [History] Furosemide [Lasix] 40 mg PO DAILY 01/31/21 [History] Gabapentin [Neurontin] 300 mg PO BID 01/31/21 [History] Loratadine 10 mg PO DAILY 01/31/21 [History] Magnesium Oxide [Mag-Ox] 400 mg PO DAILY 01/31/21 [History] Multivitamins, Thera [Multivitamin (formulary)] 1 tab PO DAILY 01/31/21 [History] Omeprazole [PriLOSEC] 20 mg PO DAILY 01/31/21 [History] Ondansetron [Zofran] 4 mg PO Q4H PRN 01/31/21 [History] Potassium Chloride ER [K-Dur 20] 20 meq PO BID 01/31/21 [History] Sennosides/Docusate Sodium [Senna Plus 8.6-50 mg Softgel] 1 cap PO BID 01/31/21 [History] Tamsulosin HCl [Flomax] 0.4 mg PO DAILY 01/31/21 [History] Terbinafine [LamISIL] 250 mg PO DAILY 01/31/21 [History] glipiZIDE [Glucotrol XL] 2.5 mg PO DAILY 01/31/21 [History] metFORMIN HCL [Glucophage] 1,000 mg PO BID 01/31/21 [History] rOPINIRole HCL [Requip] 0.5 mg PO BID 01/31/21 [History] Acetaminophen Tab [Tylenol] 650 mg PO Q6HR PRN tab 02/03/21 [Rx] HYDROcodone/APAP 5-325MG [[place] 5-325] 1 each PO Q4HR PRN #8 tab 02/03/21 [Rx] Follow up Appointment(s)/Referral(s): Cynthia Ferrell NPC [Primary Care Provider] - 1-2 days Kasie Bhatti DO [REFERRING] - 1 Week Boris Tang MD [STAFF PHYSICIAN] - 3 Weeks Ambulatory/Diagnostic Orders: Basic Metabolic Panel [LAB.AMB] Time Frame: 3 Days, Location: None Selected Complete Blood Count w/diff [LAB.AMB] Time Frame: 3 Days, Location: None Selected Patient Instructions/Handouts: Kidney Stones (DC) Activity/Diet/Wound Care/Special Instructions: Please follow up with your Gauge Checker Dr. Alaouie in order to complete cardiac clearance for possible surgery. Need to discuss stopping plavix prior to urological procedure with Dr Tang Please f/u with Dr Tang for urology for percutaneous nephrolithotomy. Need to schedule and stop plavix per recommendations prior to procedure. F/U with PCP Discharge Disposition: HOME WITH HOME HEALTH SERVICES
[2021-02-03] MEDS: ERTAPENEM 1 GM in SODIUM CHLORIDE 0.9% 50 ML IVPB SCH (15:33)
[2021-02-03 15:35] LABS: Appearance,Urine Clear (Clear); Bilirubin,Urine Negative (Negative); Blood,Urine Negative (Negative); Color,Urine Yellow; Glucose,Urine (UA) Negative (Negative); Ketones,Urine Negative (Negative); Leukocyte Esterase,Urine Trace (Negative); Nitrite,Urine Negative (Negative); PH, Urine 6.5 (5.0-8.0); Protein,Urine Negative (Negative); RBC,Urine <1 /hpf (0-5); Specific Gravity,Urine 1.016 (1.001-1.035); Squamous Epithelial Cell,Urine <1 /hpf (0-4); Urobilinogen,Urine <2.0 mg/dL (<2.0); WBC,Urine 4 /hpf (0-5)
--- NOTE | 2021-02-03 15:36 | PN ---
PROGRESS NOTE DATE OF SERVICE: 02/03/2021 REASON FOR FOLLOWUP: Urinary tract infection. INTERVAL HISTORY: The patient is afebrile. The patient still complains of not feeling well. Denies having any chest pain or shortness of breath. Did have some nausea but no vomiting. Still complaining of abdominal pain. No diarrhea. PHYSICAL EXAMINATION: Blood pressure 131/73 with a pulse of 74, temperature of 98. He is 95% on 3 L nasal cannula. GENERAL DESCRIPTION: General description is a middle-aged male lying in bed in no distress. RESPIRATORY SYSTEM: Unlabored breathing. Clear to auscultation anteriorly. HEART: S1, S2. Regular rate and rhythm. ABDOMEN: Soft. No distention. No guarding or rigidity. LABS: Hemoglobin is 11.2, white count of 5.1. BUN of , creatinine 1.1. The urine culture that was done at the [facility] did come back positive with 100,000 colonies of ESBL E coli. DIAGNOSTIC IMPRESSION AND PLAN: Patient with a complicated urinary tract infection, now with urine and cultures done in outpatient setting showing ESBL Escherichia coli. We will repeat his urine culture and start the patient on Invanz with discharge antibiotic on the basis of the repeat UA. If clear, he may not need any. If positive, he will need IV Invanz to go home with. KIRBY / QUETAN: [id number] /
[2021-02-03 17:29] LABS: Glucose,Whole Blood 131 mg/dL (75-99)
--- NOTE | 2021-02-03 17:30 | P.PN ---
Subjective Progress Note Date: 02/03/21 65-year-old male with past nuchal history of COPD, diabetes, heart failure who presents to the emergency department with reported right-sided abdominal pain. Patient is transferred from [facility]. He states that he took an ambulance into the emergency department for some right-sided abdominal pain. States he has not had a bowel movement in 4 days and normally goes daily. He also reports to burning with urination, frequent urination. Laboratory studies were performed at the outside hospital which were all within normal admits. Covid was negative. Patient did have a urinary tract infection with nitrite- positive urine and 3+ bacteria. He was given a dose of meropenem and blood cultures were obtained. CT was performed patient's abdomen and pelvis which demonstrated a 13 mm and 1 mm renal stone on the left. This is opposite the side of the patient's pain. The patient was given Tylenol and Toradol for pain control with some improvement in his symptoms. The facility in [facility] wanted to transfer the patient here for further evaluation. There are report that the patient has had multiple urinary tract infections in the past were concerned that the renal stone was a nidus for his infection. They're requesting urology consultation. The patient did have 102 fever in their facility. Patient currently afebrile at this time. Still continues to have abdominal pain. 02/01/2021 Patient is evaluated today at the bedside. He stills complains of quite a bit of right sided flank and abdominal pain. Patient is urinating without difficulty. He was evaluated by urology who recommended patient complete a two- week course of antibiotics. I would plan for a percutaneous nephrolithotomy in 4-6 weeks outpatient. Patient is pending cardiology evaluation for clearance for surgery. Patient does have a history of heart failure, COPD, hypertension, diabetes. Patient states that 10 minutes prior to my examination he was walking himself to the bathroom and experienced some dizziness and lightheadedness. He states that he did feel some fluttering at this time as well and his left chest wall. Patient does not have a history of atrial fibrillation. Request the patient be placed on telemetry and orthostatics completed. Orthostatics are not available for review. Patient's vital signs have remained stable afebrile 98.7, heart rate 98, blood pressure 125/69 patient is 94% on room air. Patient is continued on IV Rocephin as well as Zithromax. KUB reveals a nonacute abdomen. Patient denies any nausea or vomiting, diarrhea, chest pain, cough, shortness of breath. Echocardiogram is currently pending. Pt will most likely be discharged tomorrow to f/u with his mirror maker for surgical clearance. 02/02/2021 Patient is evaluated today sitting up at the bedside. He is still complaining of right-sided flank and abdominal pain that radiates across his abdomen rated a 5 out of 10. Patient states that he has not had a bowel movement in 1 week. There is as needed magnesium order that has not been administered. Patient still complaining of some shortness of breath at rest. Chest x-ray is reviewed, patient will continue on antibiotics and incentive spirometery. Patient stated that throughout the evening he had an episode of vomiting with some dark red blood as well as a sharp 4 out of 10 sensation to the left of his epigastrium that did not radiate. EKG was completed it was found to be normal sinus rhythm, troponins negative. Echocardiogram is 55-60%. Primary blood cultures remain negative, pending finalized results. Patient is continued on antibiotics, pain management. [place] and Toradol has been added. PT OT consultation. Patient states that he does not have transportation back to [place] upon discharge. He will need a social work consultation. Patient is afebrile, heart rate 82 sinus rhythm, blood pressure 122/71, 94% on room air. Patient is requiring nasal cannula periodically please wean O2 as tolerated. Patient today states that he is having some burning and discomfort with urination, he denies any blood in the urine. 02/03/2021 Due to urine culture positive for ESBL E.Coli, patient is not cleared by ID for discharge. Patient will be started on IV invanz and repeat UA and culture will be ordered. Plan from ID is IV abx on discharge if repeat urine culture is positive. Pt reports a small BM throughout the evening after a 1 time dose of milk of mag. He denies any chest pain or pressure today. He denies any further episodes of vomiting, and no further signs of bleeding. Hgb is stable today at 11.2. He is wearing oxygen to sleep, however, he does wear a CPAP at home. He is on room air with a pulse ox of 94-96%. A nicotine patch will be ordered for the patient. Cont. with norco and toradol for pain mgt. Cont with PT and OT. ROS Constitutional: Denied any fatigue denied any fever. Cardio vascular: Denies palpitations. Denies chest pain Gastrointestinal denied any nausea vomiting, reports constipation. : reports RUQ abdominal pain, radiates across the abd sharp in nature, constant. Today patient is complaining of some burning and discomfort with urination. Pulmonary: Denies cough, reports shortness of breath with exertion Neurologic denied any new focal deficits All inpatient medications were reviewed and appropriate changes in these medications as dictated in the interval history and assessment and plan. PHYSICAL EXAMINATION: GENERAL: The patient is alert and oriented x3, not in any acute distress. Well developed, well nourished. HEENT: Pupils are round and equally reacting to light. EOMI. No scleral icterus. No conjunctival pallor. Normocephalic, atraumatic. No pharyngeal erythema. No thyromegaly. CARDIOVASCULAR: S1 and S2 present. No murmurs, rubs, or gallops. PULMONARY: Chest is clear to auscultation, no wheezing or crackles. ABDOMEN: Soft, tender, distended, normoactive bowel sounds. No palpable organomegaly. Right CVA tenderness MUSCULOSKELETAL: No joint swelling or deformity. EXTREMITIES: No cyanosis, clubbing, +1 pedal edema, pitting NEUROLOGICAL: Gross neurological examination did not reveal any focal deficits. SKIN: No rashes. Assessment and plan Assessment: 1. Recurrent UTI - Final Cultures reveal ESBL in the urine, IV Invanz. 2. Intractable abdominal pain/Left-sided nephrolithiasis - Patient has been placed on IV fluids in form of normal saline at a rate of 75 mL an hour; we will start patient on Flomax 0.4 milligrams daily - Urology Recommend 2 weeks of antibiotic therapy and plan for percutaneious nephrolithotomy in 4 to 6 weeks. 3. Hyperlipidemia 4. COPD; not in exacerbation; continue with albuterol nebulizer treatments along with Symbicort 2 puffs twice a day, please wean O2 as tolerated. 5. Diabetes mellitus type 2/ neuropathy, metformin and Amaryl are placed on hold. Patient is started on NovoLog sliding scale for coverage. 6. Hypertension; Cardizem CD 120 mg daily, blood pressures are improving 7. History of CAD/CHF; currently taking Plavix 75 mg daily, Lipitor and Lasix 40 mg daily 8. Chronic congestive heart failure, appears diastolic, current EF 55-60% not in acute exacerbation. Patient is maintained on oral Lasix 9. GERD Patient is experiencing intermittent episodes of sharp epigastric pain. An acute coronary syndrome ruled out troponin negative, cardiology workup has Been completed. Patient is on IV Protonix. 10. Chronic tobacco abuse - cessation provided; nicotine patch ordered DVT prophylaxis; SCDs CODE STATUS; full code IV antibiotics have been changed per ID due to a positive urine culture. Plan is for repeat cultures before discharge. CM and Social work are on the case for discharge planning. Patient will then need to follow-up with his primary cardiology. Patient will continue using incentive spirometry, PT OT consultation. Medications have been adjusted, toradol has been added for pain management. Patient has as needed milk of magnesia for constipation. Continue to monitor for any more episodes of vomiting, and signs of bleeding. Please complete post void residuals to r/o urinary retention. Objective - Vital Signs Vital signs: Vital Signs Temp 98.7 F 02/03/21 13:38 Pulse 80 02/03/21 13:38 Resp 18 02/03/21 13:38 BP 145/77 02/03/21 13:38 Pulse Ox 96 02/03/21 13:38 Intake & Output 02/02/21 02/03/21 02/03/21 18:59 06:59 18:59 Intake Total 50 800 360 Output Total 1460 200 Balance -1410 800 160 Intake: IV 50 cefTRIAXone 2 gm In 50 Sodium Chloride 0.9% 50 ml @ 100 mls/hr IVPB Q24H [facility] Rx#:[id number] Oral 800 360 Output: Urine 1460 200 Other: Voiding Method Toilet Toilet Urinal Urinal # Voids 1 2 0 - Labs CBC & Chem 7: 02/03/21 05:24 02/03/21 05:24 Labs: Abnormal Lab Results - Last 24 Hours (Table) 02/02/21 02/03/21 02/03/21 Range/Units 17:37 05:24 05:24 RBC 3.77 L (4.40-5.60) X 10*6/uL Hgb 11.2 L (13.0-17.0) g/dL Hct 36.4 L (39.6-50.0) % MCHC 30.8 L (32.0-37.0) g/dL RDW 14.6 H (11.5-14.5) % BUN/Creatinine Ratio 11.82 L (12.00-20.00) Ratio Glucose 116 H (70-110) mg/dL POC Glucose (mg/dL) 147 H (75-99) mg/dL Ur Leukocyte Esterase (Negative) 02/03/21 02/03/21 02/03/21 Range/Units 07:25 11:48 15:00 RBC (4.40-5.60) X 10*6/uL Hgb (13.0-17.0) g/dL Hct (39.6-50.0) % MCHC (32.0-37.0) g/dL RDW (11.5-14.5) % BUN/Creatinine Ratio (12.00-20.00) Ratio Glucose (70-110) mg/dL POC Glucose (mg/dL) 103 H 153 H (75-99) mg/dL Ur Leukocyte Esterase Trace H (Negative) Microbiology - Last 24 Hours (Table) 02/01/21 05:45 Blood Culture - Preliminary Blood No Growth after 48 hours
[2021-02-03] MEDS: NICOTINE 14MG/24HR PATCH TRANSDERM SCH (18:20)
[2021-02-03] MEDS: ATORVASTATIN 80 MG TAB PO SCH (19:48)
[2021-02-03 20:10] LABS: Glucose,Whole Blood 116 mg/dL (75-99)
[2021-02-03 22:39] LABS: Glucose,Whole Blood 154 mg/dL (75-99)
[2021-02-03] MEDS: ONDANSETRON 4 MG/2 ML VIAL IVP PRN (22:43)
[2021-02-04] MEDS: KETOROLAC 15 MG/ML 1 ML VIAL IVP SCH ×2 (05:18→12:47)
[2021-02-04 07:22] LABS: Glucose,Whole Blood 138 mg/dL (75-99)
[2021-02-04 07:50] VITALS: BP 143/67; TEMP 97.7
[2021-02-04] MEDS: SYMBICORT 80-4.5 MCG INHALER INHALATION SCH (08:06)
[2021-02-04] MEDS: ALBUTEROL NEBULIZED 2.5 MG/3 ML INHALATION PRN (08:06)
[2021-02-04 08:09] VITALS: PULSE 72
[2021-02-04] MEDS: INSULIN ASPART (NovoLOG) 100 UNIT/ML VIAL SQ SCH ×2 (08:45→12:30)
[2021-02-04] MEDS: NICOTINE 14MG/24HR PATCH TRANSDERM SCH (08:45)
[2021-02-04] MEDS: TAMSULOSIN 0.4 MG CAP.ER.24H PO SCH (08:46)
[2021-02-04] MEDS: FUROSEMIDE 40 MG TAB PO SCH (08:46)
[2021-02-04] MEDS: PANTOPRAZOLE 40 MG/10 ML VIAL IVP SCH (08:46)
[2021-02-04] MEDS: GABAPENTIN 300 MG CAP PO SCH (08:47)
[2021-02-04] MEDS: DILTIAZEM CD 120 MG CAP.ER.24H PO SCH (08:47)
[2021-02-04] MEDS: SENNOSIDES-DOCUSATE SODIUM 1 EACH TAB PO SCH (08:47)
[2021-02-04] MEDS: POTASSIUM CHLORIDE ER 20 MEQ TAB.ER PO SCH (08:47)
[2021-02-04] MEDS: LORATADINE 10 MG TAB PO SCH (08:47)
[2021-02-04] MEDS: TERBINAFINE 250 MG TAB PO SCH (08:47)
[2021-02-04] MEDS: MAGNESIUM OXIDE 400 MG TAB PO SCH (08:47)
--- NOTE | 2021-02-04 09:06 | P.PN ---
Progress Note - Text Progress Note Date: 02/04/21 The patient continues to experience right-sided pain. He is also experiencing nausea at times. Urine and blood cultures are negative. He is to be discharged home and follow up with Dr. Tang as an outpatient. Arrangements will be made for him to undergo a percutaneous nephrolithotomy.
[2021-02-04] MEDS ORDERED: MAGNESIUM HYDROXIDE 2,400 MG/10 ML CUP PO PRN (09:22)
[2021-02-04] MEDS: ERTAPENEM 1 GM in SODIUM CHLORIDE 0.9% 50 ML IVPB SCH (10:15)
[2021-02-04 12:03] VITALS: RESP 16
[2021-02-04 12:08] LABS: Glucose,Whole Blood 105 mg/dL (75-99)
--- NOTE | 2021-02-04 13:36 | PN ---
PROGRESS NOTE DATE OF SERVICE: 02/04/2021 REASON FOR FOLLOWUP: Complicated urinary tract infection. INTERVAL HISTORY: The patient was seen on rounds this morning. The patient has been afebrile. She is breathing comfortably. No chest pain, shortness of breath or cough. Still complaining of some pain to the right abdominal area. Nausea but no vomiting, and no diarrhea has been reported. PHYSICAL EXAMINATION: Blood pressure 143/57, pulse of 71, temperature 97.7. He is 93% on room air. GENERAL DESCRIPTION: General description is a middle-aged male up in the bed in no distress. RESPIRATORY SYSTEM: Unlabored breathing. Clear to auscultation. HEART: S1, S2. Regular rate and rhythm. ABDOMEN: Soft. No tenderness. LABS: Repeat urine is negative. DIAGNOSTIC IMPRESSION AND PLAN: Patient with right-sided nephrolithiasis, concerning for a complicated urinary tract infection. Outpatient culture positive for ESBL. Culture here has been negative so far. Will give him a short course of oral Ceftin and close outpatient followup with his urologist. MMODL / IJN: [id number] /
--- NOTE | 2021-02-04 15:05 | P.DS ---
Providers Date of admission: 02/02/21 09:15 Attending physician: Riki Mayorga MD Consults: 01/31/21 10:22 Consult Physician Urgent Consulting Provider: Boris Tang Consult Reason/Comments: recurrent uti, left renal stone Do you want consulting provider notified?: Yes Consult Physician Urgent Consulting Provider: Samantha Artis Consult Reason/Comments: recurrent uti Do you want consulting provider notified?: Yes 01/31/21 13:14 Consult Physician Routine Consulting Provider: Ilan Spann Consult Reason/Comments: clearance for percutaneous nephrolithocotomy Do you want consulting provider notified?: Yes Primary care physician: GAYATHRI Correa Hospital Course: Final Diagnosis . Recurrent UTI - urine culture negative oral antibiotics 2. Intractable abdominal pain/Left-sided nephrolithiasis - we will start patient on Flomax 0.4 milligrams daily - Urology Recommend 2 weeks of antibiotic therapy and plan for percutaneious nephrolithotomy in 4 to 6 weeks. 3. Hyperlipidemia 4. COPD; not in exacerbation; continue with albuterol nebulizer treatments along with Symbicort 2 puffs twice a day, please wean O2 as tolerated. 5. Diabetes mellitus type 2/ neuropathy, metformin and Amaryl. 6. Hypertension; Cardizem CD 120 mg daily 7. History of CAD/CHF; currently taking Plavix 75 mg daily, Lipitor and Lasix 40 mg daily 8. Chronic congestive heart failure, appears diastolic, current EF 55-60% not in acute exacerbation. Patient is maintained on oral Lasix 9. GERD Discharge Disposition Patient is discharged home to complete a course of antibiotic therapy for 2 we eks. Patient needs to f/u with Dr Tang to schedule percutaneous nephrolithotomy in 4 to 6 weeks. Prior to urological procedure, patient needs to be evaluated by his facialist who could make recommendations about stopping his Plavix prior to this procedure. Repeat labs in 3 days, please fax to PCP. Prescription provided. Hospital course This is a pleasant 65 old male who presents with a history of COPD, diabetes, heart failure with an ejection fraction of 55-60%. Patient reported with right- sided abdominal pain as well as right-sided flank pain is sharp in nature and radiating across his abdomen. Patient states that he is also had a bowel movement 6 days. Patient also reported burning with urination, frequent urination. Labs performed also the hospital and initial assessment and were all within normal limits. CLOtest was negative. Patient was positive for UTI with nitrate positive urine posterior plus bacteria. He was given a dose of meropenem and start an IV Rocephin. Final cultures are currently pending and infectious disease will place patient on oral antibiotics on discharge. CT of the abdomen pelvis was performed which demonstrated a 13 mm and 1 mm renal stone on the left, this is opposite side of the patient's pain. Patient was given Tylenol and Toradol for pain and symptoms were improved. Patient was evaluated by cardiology for clearance for a percutaneous nephrolithotomy in 4-6 weeks. Cardiology performed an echocardiogram, EF 55-60%, continue all current medications. Patient is on Plavix for a remote history of cardiac stenting, he states his most recent stent was 3-4 years ago. Because cardiology does not outpatient while they felt that he needs to follow-up with Dr. Lorenzo in [facility] in order for final surgical clearance. Troponin was negative this admission, EKG within normal limits. Patient did experience an episode of vomiting this hospital stay, he states it was bloody, however there is no further signs of bleeding. Patient's hemoglobin has remained stable, today is 11.2. Will recheck in 3 days post discharge. White blood cell is within normal limits at 5.11, all electrodes are within normal limits. Patient did experience some hyperglycemia, on inhaled steroids. He can resume home hypoglycemic agents, A1c 6. Patient has remained afebrile, heart rate sinus rhythm 60s, blood pressure 131/73. Patient's urine culture was ultimately negative and patient was discharged home on a dose of Ceftin 500 mg twice a day for 10 days. 02/04/2021 Patient is stable medically for discharge today. He denies any nausea or vomiting. Patient states that he had a large bowel movement yesterday evening and another son this morning. He denies any chest pain or chest pressure, denies any epigastric discomfort. He states that his abdominal pain is improved. And he states that he is not short of breath at rest or with exertion. Patient can continue taking Colace as needed. Lungs are clear, S1-S2 auscultated abdomen has normoactive bowel sounds, soft, nontender. He will finish his course of antibiotics. Plan is for patient to return home and to coordinate care with his social work instructor from [facility] where she'll to him tomorrow or Monday to discuss housing options. Patient wishes to move into [facility] as a long-term resident due to his current living situation. He states that he is not happy where he is at as everybody continues to smoke in the house and he is a desire for smoking cessation and a healthier lifestyle. Patient understands importance of follow-up appointments and his social work instructor help arrange transportation and care. Patient is given a 2 day supply of [place] for nephrolithiasis. Please follow-up with his PCP for additional pain management. Patient will also follow-up with urology and his facialist. Please see medication reconciliation for list of current medications. Thank you for allowing us to care of this patient. Patient Condition at Discharge: Stable Plan - Discharge Summary Discharge Rx Participant: No New Discharge Prescriptions: New Nicotine 14Mg/24Hr Patch [Habitrol] 1 patch TRANSDERM DAILY #14 patch Cefuroxime Axetil [Ceftin] 500 mg PO BID 10 Days #20 tab HYDROcodone/APAP 5-325MG [[place] 5-325] 1 each PO Q4HR PRN #8 tab PRN Reason: Pain Acetaminophen Tab [Tylenol] 650 mg PO Q6HR PRN tab PRN Reason: Mild Pain Or Fever > 100.5 Continue rOPINIRole HCL [Requip] 0.5 mg PO BID Ondansetron [Zofran] 4 mg PO Q4H PRN PRN Reason: Nausea Magnesium Oxide [Mag-Ox] 400 mg PO DAILY Loratadine 10 mg PO DAILY Gabapentin [Neurontin] 300 mg PO BID Furosemide [Lasix] 40 mg PO DAILY Diltiazem Cd [Cardizem CD] 120 mg PO DAILY Clopidogrel [Plavix] 75 mg PO DAILY Albuterol Inhaler [Ventolin Hfa Inhaler] 2 puff INHALATION RT-QID PRN PRN Reason: Shortness Of Breath Terbinafine [LamISIL] 250 mg PO DAILY Tamsulosin HCl [Flomax] 0.4 mg PO DAILY Potassium Chloride ER [K-Dur 20] 20 meq PO BID metFORMIN HCL [Glucophage] 1,000 mg PO BID Omeprazole [PriLOSEC] 20 mg PO DAILY Sennosides/Docusate Sodium [Senna Plus 8.6-50 mg Softgel] 1 cap PO BID Multivitamins, Thera [Multivitamin (formulary)] 1 tab PO DAILY glipiZIDE [Glucotrol XL] 2.5 mg PO DAILY Fluticasone/Salmeterol [Advair 250-50 Diskus] 1 puff INHALATION RT-BID Atorvastatin [Lipitor] 80 mg PO HS Discharge Medication List Albuterol Inhaler [Ventolin Hfa Inhaler] 2 puff INHALATION RT-QID PRN 01/31/21 [History] Atorvastatin [Lipitor] 80 mg PO HS 01/31/21 [History] Clopidogrel [Plavix] 75 mg PO DAILY 01/31/21 [History] Diltiazem Cd [Cardizem CD] 120 mg PO DAILY 01/31/21 [History] Fluticasone/Salmeterol [Advair 250-50 Diskus] 1 puff INHALATION RT-BID 01/31/21 [History] Furosemide [Lasix] 40 mg PO DAILY 01/31/21 [History] Gabapentin [Neurontin] 300 mg PO BID 01/31/21 [History] Loratadine 10 mg PO DAILY 01/31/21 [History] Magnesium Oxide [Mag-Ox] 400 mg PO DAILY 01/31/21 [History] Multivitamins, Thera [Multivitamin (formulary)] 1 tab PO DAILY 01/31/21 [History] Omeprazole [PriLOSEC] 20 mg PO DAILY 01/31/21 [History] Ondansetron [Zofran] 4 mg PO Q4H PRN 01/31/21 [History] Potassium Chloride ER [K-Dur 20] 20 meq PO BID 01/31/21 [History] Sennosides/Docusate Sodium [Senna Plus 8.6-50 mg Softgel] 1 cap PO BID 01/31/21 [History] Tamsulosin HCl [Flomax] 0.4 mg PO DAILY 01/31/21 [History] Terbinafine [LamISIL] 250 mg PO DAILY 01/31/21 [History] glipiZIDE [Glucotrol XL] 2.5 mg PO DAILY 01/31/21 [History] metFORMIN HCL [Glucophage] 1,000 mg PO BID 01/31/21 [History] rOPINIRole HCL [Requip] 0.5 mg PO BID 01/31/21 [History] Acetaminophen Tab [Tylenol] 650 mg PO Q6HR PRN tab 02/03/21 [Rx] HYDROcodone/APAP 5-325MG [[place] 5-325] 1 each PO Q4HR PRN #8 tab 02/03/21 [Rx] Cefuroxime Axetil [Ceftin] 500 mg PO BID 10 Days #20 tab 02/04/21 [Rx] Nicotine 14Mg/24Hr Patch [Habitrol] 1 patch TRANSDERM DAILY #14 patch 02/04/21 [Rx] Follow up Appointment(s)/Referral(s): Cynthia Ferrell NPC [Primary Care Provider] - 1-2 days (please call for follow up appointment ) Kasie Bhatti DO [REFERRING] - 1 Week (please call for follow up appointment ) Boris Tang MD [STAFF PHYSICIAN] - 2 Weeks (please call in next few weeks for follow up and out pt nephrolithiasis ) Ambulatory/Diagnostic Orders: Basic Metabolic Panel [LAB.AMB] Time Frame: 3 Days, Location: None Selected Complete Blood Count w/diff [LAB.AMB] Time Frame: 3 Days, Location: None Selected Patient Instructions/Handouts: Kidney Stones (DC) Activity/Diet/Wound Care/Special Instructions: Please follow up with your Clinical Leader Dr. Bhatti in order to complete cardiac clearance for possible surgery. Need to discuss stopping plavix prior to urological procedure with Dr Tang Please f/u with Dr Tang for urology for percutaneous nephrolithotomy. Need to schedule and stop plavix per recommendations prior to procedure. F/U with PCP Discharge Disposition: HOME WITH HOME HEALTH SERVICES
== END 2021-02-04 14:32 | disposition home health service (06) | DRG 690 ==
LOC: EC 08:50 → 6NMEDSUR 10:21 → OBSVTOIN 02-02 09:15 → 6NMEDSUR 02-03 00:09
PROVIDERS: ADMIT Internal Medicine; ATTEND Internal Medicine
DX: N39.0 Urinary tract infection, site not specified (principal); I50.32 Chronic diastolic (congestive) heart failure; Z16.12 Extended spectrum beta lactamase (ESBL) resistance; E11.40 Type 2 diabetes mellitus with diabetic neuropathy, unspecified; E11.65 Type 2 diabetes mellitus with hyperglycemia; E78.5 Hyperlipidemia, unspecified; Z20.822 Contact with and (suspected) exposure to COVID-19; F17.210 Nicotine dependence, cigarettes, uncomplicated; I11.0 Hypertensive heart disease with heart failure; I25.10 Atherosclerotic heart disease of native coronary artery without angina pectoris; J44.9 Chronic obstructive pulmonary disease, unspecified; K21.9 Gastro-esophageal reflux disease without esophagitis; N20.0 Calculus of kidney; Z79.02 Long term (current) use of antithrombotics/antiplatelets; Z79.84 Long term (current) use of oral hypoglycemic drugs; Z79.899 Other long term (current) drug therapy; Z87.440 Personal history of urinary (tract) infections; Z87.442 Personal history of urinary calculi; Z95.5 Presence of coronary angioplasty implant and graft; B96.20 Unspecified Escherichia coli [E. coli] as the cause of diseases classified elsewhere
CPT/HCPCS: 71046; 74018; 80048; 81001; 83036; 83605; 84484; 85025; 86140; 87040; 87086; 93306; 94640; 94760; 99285